=== PATIENT | male | born 1990 | race Caucasian/White ===

== ENCOUNTER 2020-12-29 09:43 | Outpatient (REF) | payer BC, SELFPAY ==
[2020-12-29 11:21] LABS: MANUAL DIFF FLAG NO
[2020-12-29 11:43] LABS: Basophils Percent Auto 0.3 % (0-2); Eosinophils Absolute Auto 0.3 X10*3/uL (0.0-0.4); Eosinophils Percent Auto 3.7 % (0-4); Hematocrit 40.7 % (42-52); Hemoglobin 13.2 g/dl (14.0-18.0); Imm Gran Abs Auto 0.03 X10*3/uL (0.00-0.03); Imm Gran Pct Auto 0.4 % (0.0-0.4); Lymphocytes Absolute Auto 1.6 X10*3/uL (1.2-4.9); Lymphocytes Percent Auto 20.5 % (20-40); Mean Corpuscular HGB Conc 32.4 g/dl (31.0-36.0); Mean Corpuscular Hemoglobin 26.8 pg (27.0-33.0); Mean Corpuscular Volume 82.7 fL (80-98); Mean Platelet Volume 10.1 fL (9.4-12.4); Monocytes Absolute Auto 0.8 X10*3/uL (0.1-1.2); Monocytes Percent Auto 9.7 % (2-11); Neutrophils Absolute Auto 5.2 X10*3/uL (2.0-8.3); Neutrophils Percent Auto 65.4 % (45-73); Platelet Count 287 X10*3/uL (160-400); Red Blood Count 4.92 X10*6/uL (4.60-5.80); Red Cell Distribution Width 12.2 % (11.0-16.0); White Blood Count 7.9 X10*3/uL (4.8-10.8)
[2020-12-29 11:57] LABS: Alanine Aminotransferase 27 U/L (0-40); Albumin Level 4.5 g/dL (3.5-5.0); Alkaline Phosphatase 141 U/L (39-117); Anion Gap 11 (12-20); Aspartate Amino Transferase 17 U/L (5-37); Bilirubin Total 0.8 mg/dL (0.0-1.0); Blood Urea Nitrogen 12 mg/dL (9-16); Calcium 9.3 mg/dL (8.4-10.2); Carbon Dioxide 28 mmol/L (22-29); Chloride 104 mmol/L (96-108); Cholesterol 211 mg/dL; Estimated Glomerular Filt Rate > 60; Glucose Fasting 86 mg/dL (60-99); HDL Cholesterol 55 mg/dL; LDL Cholesterol Calculated 141 mg/dl; Potassium 4.1 mmol/L (3.3-5.1); Sodium 139 mmol/L (135-145); Total Protein 7.3 g/dL (6.5-8.0); Triglycerides 78 mg/dL
== END 2020-12-29 09:44 | disposition home or self-care (01) ==
LOC: HO.HMGCLDS 09:43
PROVIDERS: PCP Nurse Practitioner Family; Visit Provider Nurse Practitioner Family
DX: Z00.00 Encounter for general adult medical examination without abnormal findings (principal); D64.9 Anemia, unspecified; R19.5 Other fecal abnormalities
CPT/HCPCS: 36415; 80053; 80061; 84443; 85025

== ENCOUNTER 2021-01-19 15:13 | Outpatient (REF) | payer BC, SELFPAY ==
[2021-01-20 08:08] LABS: FIT1 NEGATIVE (NEGATIVE)
[2021-01-20 08:09] LABS: FIT Int Ctl YES; FIT2 NEGATIVE (NEGATIVE)
== END 2021-01-19 15:14 | disposition home or self-care (01) ==
LOC: HO.LNP 15:13
PROVIDERS: Visit Provider Nurse Practitioner Family
DX: D64.9 Anemia, unspecified (principal)
CPT/HCPCS: 82274

== ENCOUNTER 2021-02-27 09:57 | Outpatient (REF) | payer BC, SELFPAY ==
[2021-02-27 11:44] LABS: MANUAL DIFF FLAG NO
[2021-02-27 11:51] LABS: Glucose Urine UA NEG (NEG); Leukocyte Esterase Urine NEG (NEG); Nitrite Urine NEG (NEG); Urine Blood NEG (NEG); Urine Ketones NEG (NEG); Urine Protein NEG (NEG-TRACE)
[2021-02-27 11:56] LABS: Appearance Urine CLEAR; Color Urine YELLOW
[2021-02-27 12:02] LABS: Basophils Percent Auto 0.1 % (0-2); Eosinophils Absolute Auto 0.2 X10*3/uL (0.0-0.4); Eosinophils Percent Auto 3.2 % (0-4); Hematocrit 41.7 % (42-52); Hemoglobin 13.3 g/dl (14.0-18.0); Imm Gran Abs Auto 0.04 X10*3/uL (0.00-0.03); Imm Gran Pct Auto 0.6 % (0.0-0.4); Lymphocytes Absolute Auto 1.7 X10*3/uL (1.2-4.9); Lymphocytes Percent Auto 24.3 % (20-40); Mean Corpuscular HGB Conc 31.9 g/dl (31.0-36.0); Mean Corpuscular Hemoglobin 26.7 pg (27.0-33.0); Mean Corpuscular Volume 83.6 fL (80-98); Mean Platelet Volume 10.2 fL (9.4-12.4); Monocytes Absolute Auto 0.7 X10*3/uL (0.1-1.2); Monocytes Percent Auto 10.6 % (2-11); Neutrophils Absolute Auto 4.1 X10*3/uL (2.0-8.3); Neutrophils Percent Auto 61.2 % (45-73); Platelet Count 300 X10*3/uL (160-400); Red Blood Count 4.99 X10*6/uL (4.60-5.80); Red Cell Distribution Width 12.4 % (11.0-16.0); White Blood Count 6.8 X10*3/uL (4.8-10.8)
[2021-02-27 12:14] LABS: RBC Urine 0 /HPF (0); WBC Urine 0-2 /HPF (0-4)
[2021-02-27 12:28] LABS: Ferritin 132 ng/mL (20-250)
[2021-02-27 12:49] LABS: Alanine Aminotransferase 17 U/L (0-40); Albumin Level 4.4 g/dL (3.5-5.0); Alkaline Phosphatase 149 U/L (39-117); Anion Gap 10 (12-20); Aspartate Amino Transferase 16 U/L (5-37); Bilirubin Total 0.8 mg/dL (0.0-1.0); Blood Urea Nitrogen 10 mg/dL (9-16); Calcium 9.8 mg/dL (8.4-10.2); Carbon Dioxide 27 mmol/L (22-29); Chloride 107 mmol/L (96-108); Estimated Glomerular Filt Rate > 60; Glucose Random 89 mg/dL (60-115); Iron 91 mcg/dL (45-160); Percent Iron Saturation 29 % (15-50); Potassium 4.4 mmol/L (3.3-5.1); Sodium 140 mmol/L (135-145); Total Iron Binding Capacity 314 mcg/dL (228-428); Total Protein 7.2 g/dL (6.5-8.0); Unsaturated Iron Binding 223 ug/dL
[2021-02-27 14:38] LABS: Folate 10.3 ng/mL (> or = 4.0); Vitamin B12 277 pg/mL (200-900)
== END 2021-02-27 09:58 | disposition home or self-care (01) ==
LOC: HO.HMGCLDS 09:57
PROVIDERS: PCP Nurse Practitioner Family; Visit Provider Nurse Practitioner Family
DX: D64.9 Anemia, unspecified (principal)
CPT/HCPCS: 36415; 80053; 81001; 82607; 82728; 82746; 83540; 85025; 87086

== ENCOUNTER 2021-03-09 13:07 | Outpatient (REF) | payer BC, SELFPAY ==
--- NOTE | ~2021-03-09 | XR_ITS ---
EXAMINATION: XR SHOULDER, RIGHT CLINICAL INFORMATION: Right shoulder dislocation. COMPARISON: None TECHNIQUE: AP external rotation, Grashey, scapular Y, and axillary views of the right shoulder. FINDINGS: The bones and soft tissues are normal. No fracture. Glenohumeral and acromioclavicular alignment is anatomic with normal joint space. No abnormal soft tissue calcifications. XR/XR shoulder RT min 2V IMPRESSION: Normal right shoulder.
== END 2021-03-09 13:08 | disposition home or self-care (01) ==
LOC: HO.XRAY 13:07
PROVIDERS: PCP Nurse Practitioner Family; Visit Provider Physician Assistant
DX: S43.004A Unspecified dislocation of right shoulder joint, initial encounter (principal)
CPT/HCPCS: 73030

== ENCOUNTER 2021-07-23 12:51 | Outpatient (REF) | payer BC, SELFPAY ==
[2021-07-23 13:07] LABS: MANUAL DIFF FLAG NO
[2021-07-23 13:29] LABS: Basophils Percent Auto 0.4 % (0-2); Eosinophils Absolute Auto 0.1 X10*3/uL (0.0-0.4); Eosinophils Percent Auto 1.9 % (0-4); Hematocrit 42.5 % (42.0-52.0); Hemoglobin 13.9 g/dl (14.0-18.0); Imm Gran Abs Auto 0.02 X10*3/uL (0.00-0.03); Imm Gran Pct Auto 0.3 % (0.0-0.4); Lymphocytes Percent Auto 28.5 % (20-40); Mean Corpuscular HGB Conc 32.7 g/dl (31.0-36.0); Mean Corpuscular Hemoglobin 26.8 pg (27.0-33.0); Monocytes Absolute Auto 0.8 X10*3/uL (0.1-1.2); Neutrophils Absolute Auto 3.95 x10*3/uL (2.0-8.3); Neutrophils Percent Auto 56.9 % (45-73); Platelet Count 291 X10*3/uL (160-400); Red Blood Count 5.18 X10*6/uL (4.60-5.80); Red Cell Distribution Width 12.9 % (11.0-16.0); White Blood Count 6.9 X10*3/uL (4.8-10.8)
[2021-07-23 13:36] LABS: Estimated Average Glucose 108 mg/dL; Hemoglobin A1C 131.7052 umol/L; Hemoglobin A1c % 5.4 %
[2021-07-23 14:01] LABS: Appearance Urine CLEAR; Color Urine YELLOW; Glucose Urine UA NEG (NEG); Leukocyte Esterase Urine NEG (NEG); Nitrite Urine NEG (NEG); Urine Blood NEG (NEG); Urine Ketones NEG (NEG); Urine Protein NEG (NEG-TRACE)
[2021-07-23 14:01] LABS: Alanine Aminotransferase 24 U/L (0-40); Albumin Level 4.6 g/dL (3.5-5.0); Alkaline Phosphatase 146 U/L (39-117); Anion Gap 12 (12-20); Aspartate Amino Transferase 19 U/L (5-37); Bilirubin Total 0.3 mg/dL (0.0-1.0); Blood Urea Nitrogen 7 mg/dL (9-16); Calcium 9.9 mg/dL (8.4-10.2); Carbon Dioxide 30 mmol/L (22-29); Chloride 105 mmol/L (96-108); Estimated Glomerular Filt Rate > 60; Gamma Glutamyl Transpeptidase 36 U/L (11-51); Glucose Random 92 mg/dL (60-115); Iron 73 mcg/dL (45-160); Percent Iron Saturation 23 % (15-50); Potassium 4.9 mmol/L (3.3-5.1); Sodium 142 mmol/L (135-145); Total Iron Binding Capacity 322 mcg/dL (228-428); Total Protein 7.4 g/dL (6.5-8.0); Unsaturated Iron Binding 249 ug/dL
[2021-07-23 14:21] LABS: Ferritin 136 ng/mL (20-250)
[2021-07-23 14:35] LABS: Vitamin B12 343 pg/mL (200-900)
== END 2021-07-23 12:52 | disposition home or self-care (01) ==
LOC: HO.LAB 12:51
PROVIDERS: PCP Nurse Practitioner Family; Visit Provider Nurse Practitioner Family
DX: D64.9 Anemia, unspecified (principal); R35.89 Other polyuria; R74.8 Abnormal levels of other serum enzymes
CPT/HCPCS: 36415; 80053; 81003; 82607; 82728; 82977; 83036; 83540; 85025

== ENCOUNTER 2021-08-10 21:53 | Emergency (ER) | payer BC, SELFPAY ==
[2021-08-10 22:33] VITALS: BP 110/66; PULSE 72; RESP 16; TEMP 36.3; O2SAT 99; BMI 23.8
--- NOTE | 2021-08-11 00:36 | ED_ITS ---
HPI - Wound/Laceration General Chief Complaint: Wound/Laceration Stated Complaint: left hand laceration Time Seen by Provider: 08/11/21 00:04 Source: patient and family ( Significant other) Mode of arrival: ambulatory Limitations: no limitations History of Present Illness HPI narrative: 30-year-old male came in for evaluation of left hand laceration. Left handed patient, was changing while in his car, left hand head to manage causing laceration at the base of 5th finger on the dorsum side, patient out of date for tetanus shot. No active bleeding at the moment. Related Data Home Medications Medication Instructions Recorded Confirmed ibuprofen 400 mg tablet 400 mg PO Q6H 02/27/21 02/27/21 Previous Rx's Medication Instructions Recorded montelukast 10 mg tablet 10 mg PO BEDTIME 90 Days #90 tab 04/09/21 (Singulair) amoxicillin 875 mg-potassium 1 tab PO Q12H #7 tab 08/11/21 clavulanate 125 mg tablet (Augmentin) Allergies Allergy/AdvReac Type Severity Reaction Status Date / Time No Known Allergies Allergy Verified 03/09/21 14:03 [No Known Allergies*] Review of Systems Review of Systems: All other systems are reviewed and are negative Constitutional: Reports as per HPI and Reports no additional constitutional complaints Eyes: Reports as per HPI and Reports no additional eye complaints Reports system reviewed and no additional complaints, except as documented Cardiovascular: Reports as per HPI and Reports no additional cardiovascular complaints Respiratory: Reports as per HPI and Reports no additional respiratory complaints Gastrointestinal: Reports as per HPI and Reports no additional gastrointestinal complaints Genitourinary: Reports no additional female genitourinary complaints Musculoskeletal: Reports no additional musculoskeletal complaints Skin/Breast: Reports system reviewed and no additional complaints, except as docu Psychiatric: Reports no additional psychiatric complaints Endocrine: Reports no additional endocrine complaints Hematologic/Lymphatic: Reports no additional hematologic/lymphatic complaints Allergic/Immunologic: Reports no additional allergic/immunologic complaints Reports system reviewed and no additional complaints, except as documented and Reports Abnormal speech present [facility] Past Medical History Medical History No known health problems Family History Family History Mother Asthma Social History Social History Alcohol intake: never Patient Tobacco Use Status: Never used Tobacco Advance Directives: No Advance Directives Information Provided: No Current occupational status: employed 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 Blood pressure normal. Heart rate normal. Respiration rate normal. Temperature normal. Oxygen saturation normal. Appearance: Alert. Oriented X3. No acute distress. Head: Normal external exam. Normocephalic. Atraumatic. No Beatty signs noted. No raccoon eyes noted Eyes: PERRLA. EOMI. Conjunctiva and sclera normal. Eyelids normal. ENT: TM's Normal. Pharynx normal. Uvula midline. Moist mucous membranes. No trismus noted. No drooling noted. No muffled voice noted. Neck: Normal inspection. Neck supple. FROM. No adenopathy. Thyroid Normal. No meningeal signs. No neck mass noted. CVS: Normal heart rate and rhythm. Heart sound normal. No murmurs noted. Pulses normal throughout. Respiratory: No respiratory distress. Painless inspiration. Breath sounds normal. No wheezes/rales/rhonchi noted. Chest nontender. No accessory muscle usage noted or decreased air movement noted. Abdomen: Soft and nontender. Bowel sounds normal in all 4 quadrants. No distention noted. No organomegaly noted. No visible injury noted. Back: No CVA tenderness. Full range of motion noted. Skin: Skin warm and dry. Normal skin color. Normal skin turgor. No rashes/lesions/lacerations noted. Extremities: Left hand exam: 2 cm laceration on the dorsum of left hand at the base of 5th finger, no active bleeding, no tendon injury. laceration edges are slightly red, hot with mild tenderness. Neuro: Oriented X 3. Cranial nerve exam: II-XII are grossly intact No motor deficit. No sensory deficit. Reflexes normal. Course Course Course Narrative: assessment and plan. Left hand laceration status post laceration repair with 4 suture please refer to procedure note. Start the patient on Augmentin early cellulitic change around the laceration concern of infection in the Dominant hand. Procedures Laceration Laceration 1: Site: hand Side (If applicable): left Size (cm): 3 Description: linear Depth: simple, single layer Local Anesthetic: lidocaine 1% Amount of anesthesia used (mL): 5 Pre-repair: wound explored Skin layer closed with: nylon Size (cm): 4-0 Number of sutures: 4 Discharge Plan Discharge Clinical Impression: Laceration Patient Disposition: Home, Self-Care Instructions: Laceration (ED) Prescriptions: New amoxicillin-pot clavulanate [Augmentin] 875-125 mg tablet 1 tab PO Q12H Qty: 7 RF: 0 No Action montelukast [Singulair] 10 mg tablet 10 mg PO BEDTIME 90 Days Qty: 90 RF: 0 ibuprofen 400 mg tablet 400 mg PO Q6H RF: 0 Referrals: Joseph Augustine, [employer]NA[employer] SAL[employer]ANT[employer] [Primary Care Provider] - 2 days
[2021-08-11] MEDS: Lidocaine HCl 1 % MPF 5 ML VIAL SUBCUT (00:53)
[2021-08-11] MEDS: Diphth,Pertus(ACell),Tet Adult 0.5 ML SYRINGE IM (00:54)
[2021-08-11] MEDS: Amoxicillin/Potassium Clav 875 MG TABLET PO (01:01)
== END 2021-08-11 01:08 | disposition home or self-care (01) ==
PROVIDERS: Emergency Provider Emergency Medicine; PCP Nurse Practitioner Family
DX: S61.412A Laceration without foreign body of left hand, initial encounter (principal); X58.XXXA Exposure to other specified factors, initial encounter; Y93.9 Activity, unspecified; Y92.9 Unspecified place or not applicable; Y99.9 Unspecified external cause status
CPT/HCPCS: 12002; 90471; 90715; 99283; 99284

== ENCOUNTER 2021-08-20 12:03 | Outpatient (REF) | payer BC, SELFPAY ==
[2021-08-20 14:21] LABS: Alanine Aminotransferase 38 U/L (0-40); Albumin Level 4.7 g/dL (3.5-5.0); Alkaline Phosphatase 162 U/L (39-117); Aspartate Amino Transferase 23 U/L (5-37); Bilirubin Direct 0.2 mg/dL (0.0-0.5); Bilirubin Total 0.5 mg/dL (0.0-1.0); Total Protein 7.6 g/dL (6.5-8.0)
== END 2021-08-20 12:04 | disposition home or self-care (01) ==
LOC: HO.HMGCLDS 12:03
PROVIDERS: Visit Provider Nurse Practitioner Family
DX: R74.8 Abnormal levels of other serum enzymes (principal)
CPT/HCPCS: 36415; 80076

== ENCOUNTER 2022-08-28 14:44 | Outpatient (REF) | payer OTHER, SELFPAY ==
[2022-08-28 17:01] LABS: Appearance Urine Clear; Color Urine Yellow; Glucose Urine UA Negative (Negative); Leukocyte Esterase Urine Negative (Negative); Nitrite Urine Negative (Negative); PH 5.5 (5.0-9.0); Urine Blood Negative (Negative); Urine Ketones Negative (Negative); Urine Protein Negative (Neg-Trace)
== END 2022-08-28 14:45 | disposition home or self-care (01) ==
LOC: HO.LNP 14:44
PROVIDERS: Visit Provider Internal Medicine
DX: R35.89 Other polyuria (principal); D64.9 Anemia, unspecified; R74.8 Abnormal levels of other serum enzymes
CPT/HCPCS: 81003

== ENCOUNTER 2022-09-25 10:59 | Outpatient (REF) | payer OTHER, SELFPAY ==
--- NOTE | ~2022-09-25 | US_ITS ---
EXAMINATION: US PELVIS LIMITED (BLADDER) CLINICAL INFORMATION: Urinary retention, polyuria. COMPARISON: Ultrasound abdomen 10/07/2018. TECHNIQUE: Real-time imaging of the bladder. FINDINGS: BLADDER: Well distended and unremarkable. Bilateral ureteral jets are demonstrated. Prevoid bladder volume is 159 mL. Postvoid bladder volume is 7.3 mL. Prostate volume 10.0 mL. US/US bladder IMPRESSION: Bladder is well distended and unremarkable. Prostate volume 10.0 mL.
[2022-09-25 14:10] LABS: MANUAL DIFF FLAG NO
[2022-09-25 14:16] LABS: Basophils Percent Auto 0.5 % (0-2); Eosinophils Absolute Auto 0.2 X10*3/uL (0.0-0.4); Hematocrit 44.6 % (42.0-52.0); Hemoglobin 14.1 g/dl (14.0-18.0); Imm Gran Abs Auto 0.01 X10*3/uL (0.00-0.03); Imm Gran Pct Auto 0.2 % (0.0-0.4); Lymphocytes Absolute Auto 1.9 X10*3/uL (1.2-4.9); Lymphocytes Percent Auto 46.2 % (20-40); Mean Corpuscular HGB Conc 31.6 g/dl (31.0-36.0); Mean Corpuscular Hemoglobin 26.2 pg (27.0-33.0); Mean Corpuscular Volume 82.9 fL (80.0-98.0); Mean Platelet Volume 10.3 fL (9.4-12.4); Monocytes Absolute Auto 0.6 X10*3/uL (0.1-1.2); Monocytes Percent Auto 14.3 % (2-11); Neutrophils Absolute Auto 1.4 x10*3/uL (2.0-8.3); Neutrophils Percent Auto 33.8 % (45-73); Platelet Count 315 X10*3/uL (160-400); Red Blood Count 5.38 X10*6/uL (4.60-5.80); White Blood Count 4.2 X10*3/uL (4.8-10.8)
[2022-09-25 14:30] LABS: Alanine Aminotransferase 40 U/L (0-40); Albumin Level 4.5 g/dL (3.5-5.0); Alkaline Phosphatase 124 U/L (39-117); Anion Gap 11 (12-20); Aspartate Amino Transferase 46 U/L (5-37); Bilirubin Total 0.4 mg/dL (0.0-1.0); Blood Urea Nitrogen 11 mg/dL (9-16); Calcium 9.7 mg/dL (8.4-10.2); Carbon Dioxide 30 mmol/L (22-29); Chloride 102 mmol/L (96-108); Cholesterol 151 mg/dL; Estimated Glomerular Filt Rate > 60; Gamma Glutamyl Transpeptidase 38 U/L (11-51); Glucose Random 86 mg/dL (60-115); HDL Cholesterol 44 mg/dL; LDL Cholesterol Calculated 93 mg/dl; Sodium 138 mmol/L (135-145); Total Protein 7.3 g/dL (6.5-8.0); Triglycerides 70 mg/dL
[2022-09-27 09:17] LABS: HBS Num1 18.98 mIU/mL (0-7.99); HBc Num1 0.07 S/CO (0.00-0.79); HBsAGNum1 0.37 S/CO (0.00-0.99); Hepatitis A Antibody IgM 0.18 Index (0-0.79); Hepatitis B Core Antibody Nonreactive (Nonreactive); Hepatitis B Surface Antigen Negative (Negative); ~HepC Num1 0.07 S/CO (0.00-0.79); ~Hepatitis A Antibody IgM Nonreactive (Nonreactive); ~Hepatitis B Surface Antibody REACTIVE (Nonreactive); ~Hepatitis C Antibody Nonreactive (Nonreactive)
== END 2022-09-25 11:00 | disposition home or self-care (01) ==
LOC: HO.HMGCX 10:59
PROVIDERS: PCP Internal Medicine; Visit Provider Internal Medicine
DX: Z00.00 Encounter for general adult medical examination without abnormal findings (principal); R74.8 Abnormal levels of other serum enzymes; D64.9 Anemia, unspecified; R35.89 Other polyuria
CPT/HCPCS: 36415; 76857; 80053; 80061; 82977; 85025; 86704; 86706; 86709; 86803; 87340

== ENCOUNTER → 2022-11-28 13:59 | Outpatient (BNVA) | payer OTHER, SELFPAY | PROVIDERS: PCP Internal Medicine; Visit Provider Urology | DX: R35.0 Frequency of micturition (principal); R39.89 Other symptoms and signs involving the genitourinary system; R39.15 Urgency of urination | CPT/HCPCS: 51798 ==

== ENCOUNTER 2023-02-13 14:37 | Outpatient (REF) | payer OTHER, SELFPAY ==
--- NOTE | ~2023-02-13 | XR_ITS ---
EXAMINATION: XR SHOULDER, RIGHT CLINICAL INFORMATION: Reason for Exam M25.519 - Pain in unspecified shoulder COMPARISON: None TECHNIQUE: Three views of the shoulder. FINDINGS: No acute fracture or dislocation. Joint spaces are maintained without significant degenerative change. Soft tissues are unremarkable. XR/XR shoulder RT min 2V IMPRESSION: * No acute osseous abnormality.
== END 2023-02-13 14:38 | disposition home or self-care (01) ==
LOC: HO.HOSX 14:37
PROVIDERS: PCP Internal Medicine; Visit Provider Physician Assistant
DX: S43.004A Unspecified dislocation of right shoulder joint, initial encounter (principal)
CPT/HCPCS: 73030

== ENCOUNTER 2023-04-14 12:45 | Outpatient (REF) | payer OTHER, SELFPAY ==
--- NOTE | ~2023-04-14 | FL_ITS ---
EXAMINATION: XR ARTHROGRAM SHOULDER, RIGHT CLINICAL INFORMATION: Dislocation right shoulder. Pre-MRI arthrogram COMPARISON: Previous x-ray 02/13/2023 TECHNIQUE: Procedure and risks and benefits including bleeding and infection were discussed with the patient and informed consent was obtained. The right shoulder was prepped and draped in the usual sterile fashion. The skin and soft tissues were anesthetized with 1% lidocaine plain. Using ultrasound guidance and a 22-gauge spinal needle, access to the right shoulder joint was obtained. 1 mL Omnipaque 300 contrast was injected fluoroscopically confirming adequate placement in the joint space. Subsequently, 6 mL of dilute gadolinium mixed with saline was injected pre-MRI. FINDINGS: Image demonstrate contrast opacification of the right shoulder joint. FLUOROSCOPY TIME: Fluoroscopy time 0.2 minutes DOSE AREA PRODUCT: 0.3 myers per centimeter squared. Total dose 2 mgy. 1 saved fluoroscopic image. FL/FL arthrogram shoulder RT IMPRESSION: Pre-MRI right shoulder arthrogram.
--- NOTE | ~2023-04-14 | MR_ITS ---
EXAMINATION: MR SHOULDER WITH CONTRAST, RIGHT CLINICAL INFORMATION: Right shoulder recurrent dislocations. COMPARISON: Right shoulder fluoroscopic arthrography done earlier the same day and radiographs dated 02/13/2023. TECHNIQUE: MRI of the shoulder was performed following the intra-articular administration of a dilute gadolinium-containing solution (arthrogram) on a high-field scanner. FINDINGS: ROTATOR CUFF: Mild distal supraspinatus tendinosis. No measurable rotator cuff tendon tear. No muscle atrophy or fatty infiltration. BICEPS: Intact. CORACOACROMIAL ARCH: The undersurface of the acromion is minimally curved with no subacromial spur. The acromioclavicular joint is normal. LABRUM/CAPSULE: Contrast extending through the undersurface of the anterior inferior labrum with attenuation and irregularity of the anterior labrum, consistent with mildly displaced tearing. No underlying glenoid marrow edema or glenoid fracture. 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 GLENOHUMERAL JOINT/MARROW: Humeral head currently well seated within the glenoid. Intact articular cartilage. Cortical depression at the posterosuperior humeral head measuring up to 2.4 cm in ML dimension without significant marrow edema, consistent with a chronic Hill-Sachs deformity. MR/MR shoulder RT w con IMPRESSION: 1. Chronic Hill-Sachs deformity at the posterosuperior humeral head measuring up to 2.4 cm in ML dimension without significant marrow edema. 2. 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 No underlying glenoid fracture or marrow edema. 3. Mild distal supraspinatus tendinosis without a measurable rotator cuff tendon tear.
== END 2023-04-14 12:46 | disposition home or self-care (01) ==
LOC: HO.XRAY 12:45
PROVIDERS: PCP Internal Medicine; Visit Provider Physician Assistant
DX: S43.004A Unspecified dislocation of right shoulder joint, initial encounter (principal)
CPT/HCPCS: 23350; 73040; 73222; A9585

== ENCOUNTER → 2023-04-14 12:46 | Outpatient (BNV) | payer OTHER, SELFPAY | PROVIDERS: PCP Internal Medicine; Visit Provider Radiology Diagnostic Radiology | DX: S43.004A Unspecified dislocation of right shoulder joint, initial encounter (principal) | CPT/HCPCS: 73040 ==

== ENCOUNTER 2023-05-02 09:21 | Outpatient (AMB) | payer OTHER, SELFPAY ==
--- NOTE | 2023-05-02 09:31 | A.OFFVIS_ITS ---
Intake Vital Signs 05/02/23 09:32 Height 5 ft 7 in Weight 147 lb BMI 23.0 Intake Visit Reasons: OV- MRI Review Rt Shoulder Intake Note: Shivam is a 32 year old left hand dominant male who presents today for an MRI review of the right shoulder. Patient reports that his shoulder is feeling the same with no changes Allergies No Known Allergies [No Known Allergies*] Allergy (Verified 05/02/23 09:33) HPI OV- MRI Review Rt Shoulder HPI Details Shivam is a 32 year old left hand dominant man who presents for an MRI review of his right shoulder. He says he continues to have pain with activity, unchanged from prior. His pain began after a shoulder dislocation on 02/18/21, when putting a shirt on. He has had multiple dislocations since this date, 10+ as of 12/2022. He says this most recent occurred when he was at the [employer]. He says while he has had his shoulder reduced at a hospital several times, for this most recent he did this himself. He enies ever having shoulder surgery. He denies modifying any normal daily activities and stays active by lifting weights at home or exercising almost daily. 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 Cognitive needs: No Hearing needs: No Vision needs: Yes Review of Systems Const All systems reviewed & are unremarkable except as noted in HPI and below Physical Exam Vital Signs: BMI result Body Mass Index 23.0 Const General: no acute distress, alert and awake Orientation/consciousness: patient oriented x3 HEENT Head: Yes normocephalic and Yes atraumatic Eyes EOM: EOMs intact bilaterally Resp Effort & Inspection: normal respiratory effort and able to speak in complete sentences Cardio Jugular venous distension: no JVD Skin General skin exam: turgor normal Rashes: no rashes Neuro General: patient oriented x3 Extrem Other: Right Shoulder: 2+ sulcus neg apprehension elbow extend 10 deg past neutral Psych Appearance: grossly normal Affect: normal affect Attitude: cooperative Results Reviewed Results Reviewed: I personally reviewed relevant MR images 1. Chronic Hill-Sachs deformity at the posterosuperior humeral head measuring up to 2.4 cm in ML dimension without significant marrow edema. 2. 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 No underlying glenoid fracture or marrow edema. 3. Mild distal supraspinatus tendinosis without a measurable rotator cuff tendon tear. Assessment & Plan Assessment & Plan (1) Dislocation of right shoulder joint: Code(s): S43.004A - Unspecified dislocation of right shoulder joint, initial encounter Plan: This is a 32 year old man with right shoulder instability with 10+ dislocations since 02/18/21. He hasn't dislocated in last year but has had to go to ER to have [place]oulder reduced previously. He has no pain with daily activity, but does not feel limited in his activity. 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 He is active with weight-lifting. I discussed his diagnosis and treatment options. I recommend surgery, and he would like to proceed. 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 He will follow up sometime next November to discuss treatment. Coding Level of Care Code Est Pt Level 4 (79592) Diagnoses Dislocation of right shoulder joint S43.004A
[2023-05-02 09:32] VITALS: BMI 23.0
== END 2023-05-02 09:58 | disposition home or self-care (01) ==
PROVIDERS: PCP Internal Medicine; Visit Provider Orthopaedic Surgery
DX: S43.004A Unspecified dislocation of right shoulder joint, initial encounter (principal); S42.291A Other displaced fracture of upper end of right humerus, initial encounter for closed fracture
CPT/HCPCS: 99214

== ENCOUNTER → 2023-05-02 09:21 | Outpatient (BNVA) | payer OTHER, SELFPAY | PROVIDERS: PCP Internal Medicine; Visit Provider Orthopaedic Surgery ==

== ENCOUNTER 2023-11-21 09:27 | Outpatient (AMB) | payer SELFPAY ==
[2023-11-21 09:29] VITALS: BMI 23.0
--- NOTE | 2023-11-21 09:29 | MHC.OFFVIS ---
Intake Vital Signs 11/21/23 09:29 Height 5 ft 7 in Weight 147 lb BMI 23.0 Intake Visit Reasons: ov-Dislocation of right shoulder joint Intake Note: Shivam is a 32 year old left hand dominant male who presents today for a follow up of his right shoulder. Patient has extensive history of 10+ dislocations since 02/18/21. 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 He returns today to further discuss surgery. Allergies No Known Allergies [No Known Allergies*] Allergy (Verified 11/21/23 09:31) HPI ov-Dislocation of right shoulder joint HPI Details Shivam is a 33 year old left hand dominant man who returns to discuss treatment for his chronic right shoulder dislocations. He will be completing his [employer] academy training this month, and is here to discuss surgery. He has had one dislocation since I last saw him. Overall he has had multiple dislocations. He says he is doing well overall. He stays active by lifting weights at home or exercising almost daily. 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 His last dislocation was while getting dressed. He states is dislocated inferiorly this time. 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 Resp Other: No audible wheezing Effort & Inspection: normal respiratory effort and able to speak in complete sentences Cardio Other: Radial pulse palpable with no rythmic abnormalities Jugular venous distension: no JVD Back/Spine/Pelvis Cervical Spine: normal cervical lordosis Skin General skin exam: turgor normal Rashes: no rashes Neuro General: patient oriented x3 Extrem Other: + apprehension /+ relocation 1+ sulcus at neutral and 40 deg ER Psych Appearance: grossly normal Mental Status: mental status grossly normal Speech and movement: Normal speech and movement present Affect: normal affect Attitude: cooperative Results Reviewed Results Reviewed: I personally reviewed the MR images. 1. Chronic Hill-Sachs deformity at the posterosuperior humeral head measuring up to 2.4 cm in ML dimension without significant marrow edema. 2. 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 No underlying glenoid fracture or marrow edema. 3. Mild distal supraspinatus tendinosis without a measurable rotator cuff tendon tear Assessment & Plan Assessment & Plan (1) Dislocation of right shoulder joint: Code(s): S43.004A - Unspecified dislocation of right shoulder joint, initial encounter Plan: This is a 33 yo M with multiple shoulder dislocations. He has failed PT and now dislocates with minimal provocation. I recommend right shoulder caspular plication. I discussed this with him and reveiwed the surgery and I discussed the risks benefits and alternatives including but not limited to the risk of pain, infection, stiffness, need for further surgery, recurrnet dislocation ,nerve injury as well as potential medical complications such as blood clots, pulmonary embolism and cardiac complications. He expressed understanding and we will proceed forward accordingly. Plan Prepared for Ja Guillory MD by Nick Cancino, registered medical assistant, on 11/21/23 at 9:30 AM, EST. Coding Level of Care Code Est Pt Level 4 (94725) Diagnoses Dislocation of right shoulder joint S43.004A
== END 2023-11-21 10:01 | disposition home or self-care (01) ==
PROVIDERS: PCP Internal Medicine; Visit Provider Orthopaedic Surgery
DX: S43.004A Unspecified dislocation of right shoulder joint, initial encounter (principal)
CPT/HCPCS: 99214

== ENCOUNTER → 2023-11-21 09:27 | Outpatient (BNVA) | payer OTHER, SELFPAY | PROVIDERS: PCP Internal Medicine; Visit Provider Orthopaedic Surgery | DX: M24.411 Recurrent dislocation, right shoulder (principal) | CPT/HCPCS: 99212 ==

== ENCOUNTER 2023-12-08 13:43 | Outpatient (AMB) | payer OTHER, SELFPAY ==
--- NOTE | 2023-12-08 14:02 | MHC.OFFVIS ---
Intake Intake Visit Reasons: Follow up polyuria Intake Note: Patient presents today for a follow-up on polyuria Meds- None Allergies to Antibiotic- No Known Allergies Blood Thinner- None Post Void Residual: 0ml Contract Negotiator Required: No Accompanied by: Self / Same As Patient Allergies No Known Allergies [No Known Allergies*] Allergy (Verified 12/23/23 08:10) HPI HPI Comments History of Present Illness Details Shivam is a 33year old male here for evaluation of urinary frequency, he was initially evaluated on 11/28/2022. Cystoscopy hydrodistention was discussed at that time that the patient states he had to cancel procedure but is now ready to proceed with further evaluation for his bladder symptoms. He states that while awake she has urgency and frequency about 20 times And is up 5-7 times when sleeping. He denies gross hematuria If he can not get to the bathroom he feels pressure and pain in the bladder area Prostate cancer family history both grandfathers maternal and paternal Denies problems with erections denies pain with ejaculation. Reviewed bladder ultrasound dated 09/25/2022, urine measured 159 mL postvoid residual 7.3 mL, prostate 10 mL I have discussed his general fluid intake; he does have about 16 oz of an energy drink but generally does not appear to be having excess fluid intake. He states that he has tried stopping caffeine intake but it has not made a difference in his urinary symptoms. 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 Cognitive needs: No Hearing needs: No Vision needs: Yes Review of Systems Const All systems reviewed & are unremarkable except as noted in HPI and below Reports no additional complaints Eyes Reports no additional complaints ENT Reports no additional complaints Card Reports no additional complaints Resp Reports no additional complaints GI Reports no additional complaints Reports as per HPI Musc Reports no additional complaints Skin/Breast Reports system reviewed and no additional complaints, except as documented Neuro Reports no additional complaints Psych Reports no additional complaints Endo Reports no additional complaints Elver/Lymph Reports no additional complaints Aller/Immun Reports no additional complaints Office Procedures Post Void Residual Post Residual Void Post Void Residual (PVR): 0 61604-Vicf Void Residual by ultrasound Results AMB Urinalysis, Automated UA Leukoctes 0 Tanika/uL Last Edit by [facility] on 12/08/23 14:17 UA Nitrite Negative Last Edit by [facility], [facility] on 12/08/23 14:17 UA Urobilinogen 0.2 mg/dL Last Edit by [facility], [facility] on 12/08/23 14:17 UA Protein 15 mg/dL Last Edit by [facility], [facility] on 12/08/23 14:17 UA pH 6.0 Last Edit by [facility], [facility] on 12/08/23 14:17 UA Blood 0 Jsese/uL Last Edit by [facility], [facility] on 12/08/23 14:17 UA Specific [place] 1.025 Last Edit by [facility], [facility] on 12/08/23 14:17 UA Ketone Negative Last Edit by [facility], [facility] on 12/08/23 14:17 UA Bilirubin 0 mg/dL Last Edit by [facility], [facility] on 12/08/23 14:17 UA Glucose 0 mg/dL Last Edit by [facility] on 12/08/23 14:17 Results Reviewed Results Reviewed: Laboratory Last Values Urine pH (Auto) 6.0 12/08/23 14:15 Specific [place] (Auto) 1.025 12/08/23 14:15 Urine Protein (Auto) 15 mg/dL 12/08/23 14:15 Glucose (UA)(Auto) 0 mg/dL 12/08/23 14:15 Urine Ketones (Auto) Negative 12/08/23 14:15 Urine Blood (Auto) 0 Jesse/uL 12/08/23 14:15 Urine Nitrite (Auto) Negative 12/08/23 14:15 Urine Bilirubin (Auto) 0 mg/dL 12/08/23 14:15 Urine Urobilinogen (Auto) 0.2 mg/dL 12/08/23 14:15 Leukocyte Esterase (Auto) 0 Tainka/uL 12/08/23 14:15 Assessment & Plan Assessment & Plan (1) Urinary frequency: Code(s): R35.0 - Frequency of micturition (2) Sensation of pressure in bladder area: Code(s): R39.89 - Other symptoms and signs involving the genitourinary system (3) Urinary urgency: Code(s): R39.15 - Urgency of urination Plan Renal ultrasound Cystoscopy hydrodistention. Discussed risks to include but not limited to, blood in the urine, burning with urination, urgency. Orders: Orders AMB Post Void Residual by ultrasound 12/08/23 R33.9 - Retention of urine, unspecified AMB Urinalysis Automated 12/08/23 R33.9 - Retention of urine, unspecified Patient Instructions: The patient had an opportunity to ask questions regarding treatment plan. All questions were answered. No major barriers to understanding were identified. The patient expressed understanding and agreement with the above treatment plan. The patient is aware they should contact our office by phone for worsening of their current condition or the appearance of new symptoms. Compliance is encouraged with any medications and followup testing that is ordered. It is a privilege to be allowed the opportunity to participate in the urologic care of your patient. If you have any questions or concerns regarding treatment for the above conditions please do not hesitate to contact me. The office telephone contact is [phone]. This note is constructed in part using voice recognition software. While every effort has been made to ensure accuracy recruitment manager errors may have been included. Yours sincerely, Yrn Driver MD Coding Level of Care Code Est Pt Level 4 (98256) Diagnoses Urinary frequency R35.0 Sensation of pressure in bladder area R39.89 Urinary urgency R39.15 CPT Codes Post Residual Void - PVR CPT Code: 48139-Cntr Void Residual by ultrasound ([id number])
== END 2023-12-08 14:56 | disposition home or self-care (01) ==
PROVIDERS: PCP Internal Medicine; Visit Provider Urology
DX: R35.0 Frequency of micturition (principal); R39.89 Other symptoms and signs involving the genitourinary system; R39.15 Urgency of urination
CPT/HCPCS: 99214

== ENCOUNTER → 2023-12-08 13:43 | Outpatient (BNVA) | payer SELFPAY | PROVIDERS: PCP Internal Medicine; Visit Provider Urology | DX: R35.0 Frequency of micturition (principal); R39.89 Other symptoms and signs involving the genitourinary system; R39.15 Urgency of urination; R33.9 Retention of urine, unspecified | CPT/HCPCS: 51798; 81003; 99212 ==

== ENCOUNTER 2023-12-17 07:05 | Day surgery (SDC) | payer OTHER, SELFPAY ==
[2023-12-15 09:53] VITALS: BMI 23.0
[2023-12-17] VITALS (11 sets, daily range): BP systolic 98–131; BP diastolic 55–73; PULSE 56–71; RESP 15–16; TEMP 36.6–36.8; O2SAT 96–100; BMI 21.9
[2023-12-17] MEDS: Lactated Ringers 1,000 ML 50 ML IVCONT (08:44)
--- NOTE | 2023-12-17 08:50 | P.CONAN_ITS ---
HPI - Anesthesia Eval Consult details Narrative: for right shoulderrepair PMFSH Active Problems Active Problems: All Active Problems (Updated 12/15/23 @ 09:52 by Tran Cardenas RN) Urinary urgency (Acute) Sensation of pressure in bladder area (Acute) Urinary frequency (Acute) Rectal bleeding (Acute) Polyuria (Acute) Elevated alkaline phosphatase level (Acute) Dislocation of right shoulder joint (Acute) Anemia (Acute) Physical exam (Acute) Past Medical History Medical History Dislocation of right shoulder joint Anemia Urinary urgency Family History Family History Mother Asthma Family history of problems with anesthesia: No Surgical History Surgical History No pertinent past surgical history History of Problems with Anesthesia: No Social History Social History Housing: House Alcohol intake: never Patient Tobacco Use Status: Never used Tobacco Use of substances other than those prescribed or required for medical reasons: No Are you DNR?: No Advance Directives: No Advance Directives Information Provided: Yes Current occupational status: employed 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 Cognitive needs: No Hearing needs: No Vision needs: Yes Meds Allergies Allergy/AdvReac Type Severity Reaction Status Date / Time No Known Allergies Allergy Verified 12/17/23 08:11 [No Known Allergies*] Active Medications: Current Medications Lactated Ringer's (Lr) 1,000 mls @ 50 mls/hr IVCONT .Q20H HUAN Exam Height,Weight and Vital Signs: Height 5 ft 7 in Weight 63.503 kg Last Vital Signs Temp 98.2 F 12/17/23 08:31 Pulse 64 12/17/23 08:31 Resp 15 12/17/23 08:31 BP 100/63 12/17/23 08:31 Pulse Ox 99 12/17/23 08:31 O2 Del Method Room Air 12/17/23 08:31 Airway Mallampati Class: II TM Dist: >3cm Neck ROM: Full Heart: rrr Lungs: cta Assessment and Plan Assessment Anesthesia Assessment: Anesthesia Plan Discussed and Chart Reviewed Final Anesthetic Review Family History of Problems with Anesthesia: No History of Problems with Anesthesia: No NPO: Yes ASA Class: II Final Preanesthetic Review: No Changes in Pt Med Stat, Meds/Allgs Chart Reviewed, Consent Obtained/Reviewed and Anes Risks/Benef Reviewed Patient Risk: Low Procedure Risk: Intermediate Anesthetic Plan Anesthetic Plan: GA and Regional Block Disposition: Standard PACU
--- NOTE | 2023-12-17 10:00 | MHC.SHP ---
Pre-Procedural Eval Section A - 24 Hr Update-Section A only Date of Service: 12/17/23 The patient is an INPATIENT: No Changes since office visit: No Cold of Flu in the past 2 weeks, No New Medical Problems, No Changes in Medication and No Patient answered all questions The patient has been examined within 24 hours of the surgical procedure. The History & Physical has been completed within 30 days and I have reviewed it.: Yes Section B - Complete if H&P > 30 days Chief Complaint: Other instability, right shoulder,FX of upper end Allergies: Allergies Allergy/AdvReac Type Severity Reaction Status Date / Time No Known Allergies Allergy Verified 12/17/23 08:11 [No Known Allergies*] Plan I have reviewed the history and physical and performed a pertinent physical examination on my patient. No changes have occurred unless specified. Time Spent With Patient Time: Total time managing care of this patient today ____ minutes.
--- NOTE | 2023-12-17 11:41 | P.BOP_ITS ---
Brief Operative Note Date of Service: 12/17/23 Pre-op diagnosis: Right shoulder instability Post-op diagnosis: same Procedure: Right shoulder capsular plication Implants: Gaona and Nephew micro-raptor x 2 Surgeon: Ja Guillory MD Anesthesia: GETA and regional Was an Tufting Machine Operator used for this Procedure?: Yes Tufting Machine Operator: Tammy Enriquez Estimated blood loss (mL): 10 IV fluids (mL): 1,000 Pathology: none sent Condition: stable Disposition: PACU
[2023-12-17] MEDS: ondansetron HCL 4 MG/2 ML VIAL IVPUSH (12:13)
[2023-12-17] MEDS: Haloperidol Lactate 5 MG/ML VIAL 1 MG IVPUSH (12:41)
--- NOTE | 2023-12-21 19:01 | P.OP_ITS ---
Operative Note Operative Note Date of Service: 12/17/23 Narrative: Date of Service: 12/17/23 Pre-op diagnosis: Right shoulder instability Post-op diagnosis: same Procedure: Right shoulder capsular plication Implants: Gaona and Nephew micro-raptor x 2 Surgeon: Ja Guillory MD Anesthesia: GETA and regional Was an Mandate Retail Service Merchandiser used for this Procedure?: Yes Mandate Retail Service Merchandiser: Tammy Enriquez Estimated blood loss (mL): 10 IV fluids (mL): 1,000 Pathology: none sent Condition: stable Disposition: PACU Procedure in detail: Patient was brought to the operating room and placed the the beach chair position. All bony prominences were well padded and the limb was prepped and draped in standard sterile fashion. A time out was called to identify proper site, proper procedure and proper surgeon. IV antibiotics per weight were administered. I began by making a posterolateral stab incision with a 15 blade. A blunt trochar was placed into the glenohumeral joint and I insufflated the joint with saline and a 30 degree arthroscope was placed. I established an outside- in anterior portal just distal to the biceps tendon. I then began my inspection of the glenohumeral joint. There was min G 1 cartilage changes of the inferior glenoid. The subscapularis was intact and there was no under-surface RTC tearing. There was a +drive through sign. The anterior labrum was not present and the capsule was patulous. I used a nitinol passer to grab the inferior gh ligament at the 6 o:clock position and then passed a suture tape through this. I repeated this process slightly higher and into the capsule. I then debrided the anterior glenoid and placed a 2.7 micro-raptor at the 5 o:clock position and brought these four limbs into the cuff. The brought the inferior GH ligament and capsule proximal and I was pleased with the position. I then repeated this process at the 4 o:clock position and used a second 2.7 mm anchor at ~3 o:clock. I was satisfied with the plication. There was no longer a + drive though. I then removed all instrumentation and took my final pictures. Portals were closed with nylon. Patient was placed in an abduction sling, extubated and brought to the recovery room in stable condition. There were no known complications.
== END 2023-12-17 14:37 | disposition home or self-care (01) ==
PROVIDERS: PCP Internal Medicine; Visit Provider Orthopaedic Surgery
PROC: (CPT 29805; principal; 2023-12-17 10:30)
DX: M25.311 Other instability, right shoulder (principal); M24.411 Recurrent dislocation, right shoulder; D64.9 Anemia, unspecified
CPT/HCPCS: 29806; J0131; J0171; J0665; J0690; J1100; J1630; J2250; J2405; J2704; J3010

== ENCOUNTER → 2023-12-17 07:05 | Outpatient (BNV) | payer OTHER, SELFPAY | PROVIDERS: PCP Internal Medicine; Visit Provider Orthopaedic Surgery | DX: M25.311 Other instability, right shoulder (principal) | CPT/HCPCS: 29806 ==

== ENCOUNTER 2023-12-23 08:05 | Outpatient (AMB) | payer OTHER, SELFPAY ==
--- NOTE | 2023-12-23 08:06 | MHC.OFFVIS ---
Intake Vital Signs 12/23/23 08:09 Height 5 ft 6 in Weight 140 lb BMI 22.6 Handedness Left Intake Visit Reasons: PO RT Shoulder caps plication 12/17/23 NE Intake Note: Shivam is a 33 year old left hand dominant male who presents today for a post op appointment s/p right shoulder cap plication 12/17/23 NE. Patient reports having some mild pain around his shoulder. Allergies No Known Allergies [No Known Allergies*] Allergy (Verified 12/23/23 08:10) HPI PO RT Shoulder caps plication 12/17/23 NE HPI Details 33-year-old left hand dominant male who presents in the office today 6 days status post a right shoulder capsular plication, which was performed on by Dr. Guillory. The patient reports having some mild pain around the right shoulder. 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 Sutures intact. No surrounding erythema or drainage. No signs of infection. Forward flexion and abduction to 45 degrees. NVI. Assessment & Plan Assessment & Plan (1) S/P arthroscopy of right shoulder: Onset Date: ~12/17/23 Comment: Right shoulder capsular plication; Dr. Ja Guillory Code(s): Z98.890 - Other specified postprocedural states Plan Mr. Betsy Marcos is a 33-year-old left hand dominant male who presents in the office today 6 days status post a right shoulder capsular plication, which was performed on by Dr. Guillory. The patient reports having some mild pain around the right shoulder. Sutures were removed and steri-stripes were applied. He will remain in the sling until 6 weeks post-op. Our office will be calling the physical therapy office in an attempt to get the patient scheduled as soon as possible. Follow up will be in [address] Guillory, or sooner if needed. Current pain regiment: --Oxycodone-acetaminophen 5-325 mg PO Q4-6H PRN 42 tabs for 7 days last prescribed 12/17/23 Orders: Orders PT Evaluation and Treatment Today Z98.890 - Other specified postprocedural states Patient Instructions: Scribed by Francy Tucker medical affairs director, for Tammy Enriquez PA-C on 12/23/2023 at 8:09 am, EST. Coding Level of Care Code Global (46775) Diagnoses S/P arthroscopy of right shoulder Z98.890
[2023-12-23 08:09] VITALS: BMI 22.6
== END 2023-12-23 08:45 | disposition home or self-care (01) ==
PROVIDERS: PCP Internal Medicine; Visit Provider Physician Assistant
DX: Z98.890 Other specified postprocedural states (principal)
CPT/HCPCS: 99024

== ENCOUNTER → 2023-12-23 08:05 | Outpatient (BNVA) | payer OTHER, SELFPAY | PROVIDERS: PCP Internal Medicine; Visit Provider Physician Assistant | DX: Z47.89 Encounter for other orthopedic aftercare (principal); Z98.890 Other specified postprocedural states | CPT/HCPCS: 99212 ==

== ENCOUNTER 2024-01-12 11:17 | Outpatient (REF) | payer OTHER, SELFPAY ==
--- NOTE | ~2024-01-12 | US_ITS ---
EXAMINATION: US RETROPERITONEAL LIMITED (RENAL ONLY) CLINICAL INFORMATION: Other symptoms and signs involving the genitourinary system. COMPARISON: Ultrasound pelvis limited (bladder) 09/25/2022. Ultrasound abdomen complete 10/07/2018. TECHNIQUE: Real-time imaging of the kidneys. FINDINGS: RIGHT KIDNEY: 9.7 x 4.4 x 4.0 cm (SAG x AP x TRV). The kidney is normal in size, contour, and echogenicity. Renal cortical thickness is normal. No calculi or focal parenchymal lesions. No hydronephrosis. LEFT KIDNEY: 10.1 x 5.0 x 5.0 cm (SAG x AP x TRV). The kidney is normal in size, contour, and echogenicity. Renal cortical thickness is normal. No calculi or focal parenchymal lesions. No hydronephrosis. US/US renal BI IMPRESSION: Unremarkable examination.
== END 2024-01-12 11:18 | disposition home or self-care (01) ==
LOC: HO.US 11:17
PROVIDERS: PCP Internal Medicine; Visit Provider Urology
DX: R39.89 Other symptoms and signs involving the genitourinary system (principal); R35.0 Frequency of micturition
CPT/HCPCS: 76775

== ENCOUNTER 2024-01-22 09:22 | Outpatient (AMB) | payer OTHER, SELFPAY ==
[2024-01-22 09:41] VITALS: BMI 22.6
--- NOTE | 2024-01-22 09:41 | MHC.OFFVIS ---
Vital Signs 01/22/24 09:41 Height 5 ft 6 in Weight 140 lb BMI 22.6 Intake Visit Reasons: PO RT Shoulder caps plication 12/17/23 NE Intake Note: Shivam is a 33 year old left hand dominant male who presents today for a post op appointment s/p right shoulder cap plication 12/17/23 NE. Patient reports that he is doingk well, with mild pain. He feels cracking but was told that this is normal by PT. Allergies No Known Allergies [No Known Allergies*] Allergy (Verified 01/22/24 09:41) HPI HPI PO RT Shoulder caps plication 12/17/23 NE: Details: Shivam is a 33 year old left hand dominant male who presents today for a post op appointment s/p right shoulder cap plication 12/17/23 NE. Patient reports that he is doing well, with mild pain. He feels cracking but was told that this is normal by PT. 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 Ja Guillory Code(s): Z98.890 - Other specified postprocedural states Category: Surgical Plan: Shivam is doing well but there is no need to push ROM with PT. He is s/p capsular plication and states PT is not sure what to do Coding Level of Care Code Global (24562) Diagnoses S/P arthroscopy of right shoulder Z98.890
== END 2024-01-22 09:54 | disposition home or self-care (01) ==
PROVIDERS: PCP Internal Medicine; Visit Provider Orthopaedic Surgery
DX: Z98.890 Other specified postprocedural states (principal)
CPT/HCPCS: 99024

== ENCOUNTER → 2024-01-22 09:22 | Outpatient (BNVA) | payer OTHER, SELFPAY | PROVIDERS: PCP Internal Medicine; Visit Provider Orthopaedic Surgery | DX: Z47.89 Encounter for other orthopedic aftercare (principal); Z98.890 Other specified postprocedural states | CPT/HCPCS: 99212 ==

== ENCOUNTER 2024-01-27 06:03 | Day surgery (SDC) | payer OTHER, SELFPAY ==
[2024-01-23 10:53] VITALS: BMI 21.9
--- NOTE | 2024-01-23 13:13 | P.CONAN_ITS ---
Documented by User: Alyssa Neri NP 01/23/24 13:13 HPI - Anesthesia Eval Consult details Narrative: 33yo M for Cystoscopy Hydrodistention of Bladder s/p shoulder scope 11/2023 with GA-ETT 7.5 PMFSH Active Problems Active Problems: All Active Problems S/P arthroscopy of right shoulder (Acute ~12/17/23) Urinary urgency (Acute) Sensation of pressure in bladder area (Acute) Urinary frequency (Acute) Rectal bleeding (Acute) Polyuria (Acute) Elevated alkaline phosphatase level (Acute) Dislocation of right shoulder joint (Acute) Anemia (Acute) Physical exam (Acute) Past Medical History Medical History Dislocation of right shoulder joint Anemia Urinary urgency Family History Family History Mother Asthma Family history of problems with anesthesia: No Surgical History Surgical History History of arthroscopy of right shoulder History of Problems with Anesthesia: No Social History Social History Housing: House Alcohol intake: never Comment: COUNTS CORRECT Patient Tobacco Use Status: Never used Tobacco Current occupational status: employed 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 Cognitive needs: No Hearing needs: No Vision needs: Yes Meds Allergies Allergy/AdvReac Type Severity Reaction Status Date / Time No Known Allergies Allergy Verified 01/27/24 06:18 [No Known Allergies*] Home Medications ?Medication ?Instructions ?Recorded ?Confirmed ?Last Taken ?Type cetirizine 10 mg tablet (Zyrtec) 10 mg PO DAILY PRN allergies 01/27/24 01/27/24 Unknown History Exam Height,Weight and Vital Signs: Height 5 ft 7 in Weight 63.503 kg Assessment and Plan Assessment Anesthesia Assessment: Chart Reviewed Final Anesthetic Review Family History of Problems with Anesthesia: No History of Problems with Anesthesia: No Documented by User: Tammy Carlos MD 01/27/24 07:20 [facility] Past Medical History Medical History Dislocation of right shoulder joint Anemia Urinary urgency Family History Family History Mother Asthma Surgical History Surgical History History of arthroscopy of right shoulder Social History Social History Housing: House Alcohol intake: never Comment: COUNTS CORRECT Patient Tobacco Use Status: Never used Tobacco Current occupational status: employed 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 Cognitive needs: No Hearing needs: No Vision needs: Yes Meds Allergies Allergy/AdvReac Type Severity Reaction Status Date / Time No Known Allergies Allergy Verified 01/27/24 06:18 [No Known Allergies*] Home Medications ?Medication ?Instructions ?Recorded ?Confirmed ?Last Taken ?Type cetirizine 10 mg tablet (Zyrtec) 10 mg PO DAILY PRN allergies 01/27/24 01/27/24 Unknown History Exam Airway Mallampati Class: II TM Dist: >3cm Neck ROM: Full Loose/Missing/Broken Teeth: No Heart: RRR Lungs: CTA Assessment and Plan Assessment Anesthesia Assessment: Anesthesia Plan Discussed Final Anesthetic Review NPO: Yes ASA Class: II Final Preanesthetic Review: Meds/Allgs Chart Reviewed, Consent Obtained/Reviewed and Anes Risks/Benef Reviewed Patient Risk: Low Procedure Risk: Low Anesthetic Plan Anesthetic Plan: GA Disposition: Standard PACU
[2024-01-27] VITALS (11 sets, daily range): BP systolic 97–166; BP diastolic 61–99; PULSE 61–76; RESP 14–18; TEMP 36.1–36.5; O2SAT 95–100; BMI 23.5
[2024-01-27] MEDS: Lactated Ringers 1,000 ML 100 ML IVCONT (06:39)
--- NOTE | 2024-01-27 07:17 | MHC.SHP ---
Pre-Procedural Eval Section A - 24 Hr Update-Section A only Date of Service: 01/27/24 The patient is an INPATIENT: No The patient has been examined within 24 hours of the surgical procedure. The History & Physical has been completed within 30 days and I have reviewed it.: Yes Section B - Complete if H&P > 30 days Chief Complaint: Urgency of urination Allergies: Allergies Allergy/AdvReac Type Severity Reaction Status Date / Time No Known Allergies Allergy Verified 01/27/24 06:18 [No Known Allergies*] Plan Diagnosis/Plan: Unchanged I have reviewed the history and physical and performed a pertinent physical examination on my patient. No changes have occurred unless specified. Cystoscopy Hydrodistension. Discussed risks to include but not limited to, blood in the urine, burning with urination, urgency. Time Spent With Patient Time: Total time managing care of this patient today ____ minutes.
--- NOTE | 2024-01-27 08:01 | P.OP_ITS ---
Operative Note Operative Note Date of Service: 01/27/24 Narrative: PREOP DIAGNOSIS: Urinary urgency, bladder pressure, microscopic hematuria POSTOP DIAGNOSIS: Interstitial cystitis, Urinary urgency, bladder pressure, microscopic hematuria, PROCEDURE: CYSTOSCOPY HYDRODISTENTION, BLADDER INSTALLATION Anethesia: General Surgeon: Dr. Yrn Driver Indications: Persistent urinary urgency, bladder pressure. Urinalysis negative for signs of infection. Renal ultrasound 01/12/2024, within normal limits negative for renal calculi. Details of procedure: The patient was brought into the operating room placed on the OR table in supine position. 2 g of Ancef IV. General anesthesia was administered. The patient was repositioned into lithotomy position, prepped and draped in the usual sterile fashion. Time-out was done per protocol. A 22 fr cystoscope was placed transurethrally into the bladder. The bulbous urethra was within normal limits. The prostatic urethra was nonobstructive. The right and left ureteral orifices were visualized. The entire bladder was visualized. There were no suspicious bladder lesions seen. The bladder was filled with sterile water at 80 cm of water pressure under gravity. The bladder was diste nded for 2 minutes. Bladder capacity measured 500 mL. Revisualization of the bladder, noted moderate glomerulations on several quadrants of the bladder. No Daryl ulcerations visualized. The bladder was refilled with sterile water again at 80 cm of water pressure under gravity. The bladder was distended for 4 minutes. The fluid was drained from the bladder and measured 625 mL. The cystoscope was removed. 2% lidocaine urojet was passed transurethrally, Solution of (1% lidocaine plain, 15 mL, 0.5 % Marcaine 15 mL mixed with 30,000 units of heparin concentration 5000 units per mL total of 6 mL hepaine) instilled transurethrally through a 14 Tamazight catheter into the bladder. The patient was brought out of anesthesia and taken to recovery in stable condition. Complications: None Drains: none
[2024-01-27] MEDS: Acetaminophen 325 MG TABLET 650 MG PO (08:18)
[2024-01-27] MEDS: Phenazopyridine HCL 200 MG TABLET PO (08:19)
[2024-01-27] MEDS: oxyCODONE HCl Immed Release 5 MG TABLET PO (08:25)
[2024-01-27] MEDS: fentaNYL citrate/PF 100 MCG/2 ML VIAL 25 MCG IVPUSH ×2 (08:34→08:41)
[2024-01-27] MEDS: hydrOXYzine HCL 25 MG TABLET PO (08:34)
== END 2024-01-27 09:57 | disposition home or self-care (01) ==
PROVIDERS: PCP Internal Medicine; Visit Provider Urology
PROC: 0T7B7ZZ Dilation of Bladder, Via Natural or Artificial Opening (ICD-10-PCS; CPT 52260; principal; 2024-01-27 07:30)
DX: N30.10 Interstitial cystitis (chronic) without hematuria (principal); R39.15 Urgency of urination; R35.0 Frequency of micturition; R39.89 Other symptoms and signs involving the genitourinary system; D64.9 Anemia, unspecified
CPT/HCPCS: 52260; 51700; J0690; J1100; J1644; J2250; J2405; J2704; J2795; J3010

== ENCOUNTER → 2024-01-27 06:03 | Outpatient (BNV) | payer OTHER, SELFPAY | PROVIDERS: PCP Internal Medicine; Visit Provider Urology | DX: R39.15 Urgency of urination (principal); R31.29 Other microscopic hematuria | CPT/HCPCS: 52260 ==

== ENCOUNTER 2024-02-06 06:24 | Outpatient (REF) | payer OTHER, SELFPAY ==
[2024-02-06 10:26] LABS: MANUAL DIFF FLAG NO
[2024-02-06 10:38] LABS: Basophils Percent Auto 0.5 % (0-2); Eosinophils Absolute Auto 0.5 X10*3/uL (0.0-0.4); Eosinophils Percent Auto 6.2 % (0-4); Hematocrit 40.6 % (42.0-52.0); Hemoglobin 13.3 g/dl (14.0-18.0); Imm Gran Abs Auto 0.03 X10*3/uL (0.00-0.03); Imm Gran Pct Auto 0.4 % (0.0-0.4); Lymphocytes Absolute Auto 2.5 X10*3/uL (1.2-4.9); Lymphocytes Percent Auto 32.5 % (20-40); Mean Corpuscular HGB Conc 32.8 g/dl (31.0-36.0); Mean Corpuscular Hemoglobin 27.3 pg (27.0-33.0); Mean Corpuscular Volume 83.2 fL (80.0-98.0); Mean Platelet Volume 10.2 fL (9.4-12.4); Monocytes Absolute Auto 0.9 X10*3/uL (0.1-1.2); Monocytes Percent Auto 11.4 % (2-11); Neutrophils Absolute Auto 3.7 x10*3/uL (2.0-8.3); Platelet Count 276 X10*3/uL (160-400); Red Blood Count 4.88 X10*6/uL (4.60-5.80); Red Cell Distribution Width 12.3 % (11.0-16.0); White Blood Count 7.6 X10*3/uL (4.8-10.8)
[2024-02-06 10:51] LABS: Appearance Urine Clear; Color Urine Yellow; Glucose Urine UA Negative (Negative); Leukocyte Esterase Urine Negative (Negative); Nitrite Urine Negative (Negative); Urine Blood Negative (Negative); Urine Ketones Negative (Negative); Urine Protein Negative (Neg-Trace)
[2024-02-06 11:02] LABS: Bacteria Urine None Seen (None Seen); Hyaline Casts Urine 0-2 /LPF (0-2); RBC Urine 0-2 /HPF (0-2); Squamous Epithelial Cell Urine 0-2 /HPF (0-2); WBC Urine 0-5 /HPF (0-5)
[2024-02-06 11:21] LABS: Alanine Aminotransferase 17 U/L (0-40); Albumin Level 4.3 g/dL (3.5-5.0); Alkaline Phosphatase 124 U/L (39-117); Anion Gap 12 (12-20); Aspartate Amino Transferase 18 U/L (5-37); Bilirubin Total 0.4 mg/dL (0.0-1.0); Blood Urea Nitrogen 13 mg/dL (9-16); Calcium 9.6 mg/dL (8.4-10.2); Carbon Dioxide 28 mmol/L (22-29); Chloride 105 mmol/L (96-108); Cholesterol 194 mg/dL (<200); Estimated Glomerular Filt Rate > 60; Glucose Fasting 81 mg/dL (60-99); HDL Cholesterol 59 mg/dL (>40); LDL Cholesterol Calculated 119 mg/dL (<100); Potassium 4.2 mmol/L (3.3-5.1); Sodium 141 mmol/L (135-145); Total Protein 7.3 g/dL (6.5-8.0); Triglycerides 80 mg/dL (<150)
[2024-02-06 11:30] LABS: Folate 11.9 ng/mL (> or = 4.0); Vitamin B12 785 pg/mL (200-900)
[2024-02-09 14:39] LABS: Iron 79 mcg/dL (45-160); Percent Iron Saturation 28 % (15-50); Total Iron Binding Capacity 281 mcg/dL (228-428); Unsaturated Iron Binding 202 ug/dL
== END 2024-02-06 06:25 | disposition home or self-care (01) ==
LOC: HO.HMGCLDS 06:24
PROVIDERS: PCP Internal Medicine; Visit Provider Internal Medicine
DX: Z00.00 Encounter for general adult medical examination without abnormal findings (principal); D64.9 Anemia, unspecified
CPT/HCPCS: 36415; 80053; 80061; 81001; 82607; 82746; 83540; 85025

== ENCOUNTER → 2024-02-09 10:08 | Outpatient (BNVA) | payer OTHER, SELFPAY | PROVIDERS: PCP Internal Medicine; Visit Provider Urology | DX: R39.15 Urgency of urination (principal); R35.0 Frequency of micturition; R39.89 Other symptoms and signs involving the genitourinary system | CPT/HCPCS: 51798 ==

== ENCOUNTER 2024-02-09 13:07 | Outpatient (AMB) | payer OTHER, SELFPAY ==
[2024-02-09 13:17] VITALS: BP 98/64; PULSE 73; O2SAT 98; BMI 22.9
--- NOTE | 2024-02-09 13:17 | MHC.PC.OV ---
Vital Signs 02/09/24 13:17 Height 5 ft 7 in Weight 146 lb BMI 22.9 BP 98/64 Blood Pressure Location Rt brachial Position Sitting Pulse 73 Pulse Source Pulse Oximeter Pulse Oximetry (%) 98 Oxygen Delivery Method Room Air Intake Visit Reasons: Annual PE Intake Note: Pt is here today for PE. Allergies No Known Allergies [No Known Allergies*] Allergy (Verified 02/09/24 13:18) Medication List - Last Reconciled 02/09/24 by Heidi Souza MD cetirizine (Zyrtec) 10 mg PO DAILY PRN Tobacco use date assessed: 02/09/24 Dental Screening Dental Screen Date: 02/09/24 Did you have a dental visit in the last 12 months?: Yes Did you have a dental problem in the last 6 months where you did not have access to dental care?: No Was dental information given to patient?: Patient has dentist HPI Annual PE HPI Details Pt presents for PE. He complains of persistent chronic bright red blood per rectum once or twice a month usually when he is constipated. Patient was referred 2 years ago to surgery specialist but did not keep an appointment. He denies abdominal pain, weight lost melena. Patient complains of spring time seasonal allergies getting worse and [id number] Claritin or Zyrtec are not effective. 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 92529 - PHQ-9 Billing: Patient declined-do not bill Source: Developed by Drs. Quinton Fitzgerald, ColleenEnmanuel Ludwig and colleagues, with an educational juma from [employer]. Thrive Questionnaire Date Thrive assessed: 02/09/24 What is your living situation today?: I choose not to answer this question Within the past 12 months, did the food you bought not last and you didn't have the money to get more?: I choose not to answer this question Within the past 12 months, did you worry whether your food would run out before you got money to buy more?: I choose not to answer this question Do you have trouble paying for medicines?: I choose not to answer this question Do you have trouble getting transportation to medical appointments?: I choose not to answer this question Do you have trouble paying your heating and electricity bill?: I choose not to answer this question Do you have trouble taking care of your child, family member or friend?: I choose not to answer this question Do you have trouble with day-to-day activities such as bathing, preparing meals, shopping, managing finances, etc.?: I choose not to answer this question Are you currently unemployed and looking for a job?: I choose not to answer this question Are you interested in more education?: I choose not to answer this question Please select the resources that you would like help with: None THRIVE Score: 0 AUDIT C Alcohol Use Questionnaire (AUDIT-C) 1. How often do you have a drink containing alcohol?: Never 3. How often do you have six or more drinks on one occasion?: Never Total Score: 0 MASON-7 AMB Questionnaire MASON-7 Date MASON - 7 assessed: 08/28/22 Source: Developed by Drs. Quinton Fitzgerald, Enmanuel Kat and colleagues, with an educational juma from [employer]. MASON-7 Assessment Billing MASON-7 Assessment Tool: pt declined-do not bill Review of Systems Const All systems reviewed & are unremarkable except as noted in HPI and below Reports no additional complaints Eyes Reports no additional complaints ENT Reports no additional complaints Card Reports no additional complaints Resp Reports no additional complaints GI Reports no additional complaints Physical exam (Primary Care) Vital Signs: Last Vital Signs Pulse 73 02/09/24 13:17 BP 98/64 02/09/24 13:17 Pulse Ox 98 02/09/24 13:17 Oxygen Delivery Method Room Air 02/09/24 13:17 BMI result Body Mass Index 22.9 Tobacco/Smoking Status: Tobacco use Status Tobacco use date assessed 02/09/24 02/09/24 13:19 Patient Tobacco Use Status Never used Tobacco 02/09/24 13:47 e-Cigarette/Vaping Use 02/09/24 13:19 Thrive Assessment: Date of Thrive Assessment Date Thrive assessed 02/09/24 02/09/24 13:47 Const General: no acute distress HENMT Head: Yes normal to inspection Face and sinus: Yes normal facial exam Mouth: Normal oral and palatal mucosa present Throat: Yes posterior oropharynx normal Eyes General: appearance normal, both eyes and all related structures Neck Neck: Yes no lymphadenopathy and Yes supple Resp Effort & Inspection: normal respiratory effort Auscultation: clear to auscultation bilaterally Cardio Rhythm: regular rhythm Heart sounds: S1 normal heart sound present GI Inspection: Yes normal to inspection Palpation (GI): Soft to palpation Percussion: Yes normal to percussion Auscultation: normal bowel sounds Assessment and Plan Assessment & Plan (1) Rectal bleeding: Code(s): K62.5 - Hemorrhage of anus and rectum Plan: Referred to GI, constipation prevention discussed with the patient (2) Anemia: Code(s): D64.9 - Anemia, unspecified Plan: For borderline low hemoglobin level check iron studies (3) Seasonal allergic rhinitis: Code(s): J30.2 - Other seasonal allergic rhinitis Plan: Patient will try Ivette will be referred to zinc furnace charger (4) Elevated alkaline phosphatase level: Code(s): R74.8 - Abnormal levels of other serum enzymes Plan: Check GGTP and hepatitis serologies (5) Physical exam: Code(s): Z00.00 - Encounter for general adult medical examination without abnormal findings Plan: Well-balanced diet regular physical activity discussed with the patient Orders: Orders IRON PROFILE Today D64.9 - Anemia, unspecified Reticulocyte Count Today D64.9 - Anemia, unspecified Alkaline Phosphatase Bone Today R74.8 - Abnormal levels of other serum enzymes Liver Kidney Microsomal Ab Today R74.8 - Abnormal levels of other serum enzymes DILLAN Reflex Titer and Pattern Today R74.8 - Abnormal levels of other serum enzymes Gamma Glutamyl Transpeptidase Today R74.8 - Abnormal levels of other serum enzymes Hepatitis A,B,C Profile Today R74.8 - Abnormal levels of other serum enzymes Referrals Allergy & Immunology Referral J30.2 - Other seasonal allergic rhinitis Gastroenterology Referral D64.9 - Anemia, unspecified, K62.5 - Hemorrhage of anus and rectum Medications: New fexofenadine (Ivette Allergy) 180 mg PO DAILY 90 tabs 0RF Coding Level of Care Code Est Pt Prev Care 18-39y(22995) Diagnoses Rectal bleeding K62.5 Anemia D64.9 Seasonal allergic rhinitis J30.2 Elevated alkaline phosphatase level R74.8 Physical exam Z00.00
== END 2024-02-09 14:26 | disposition home or self-care (01) ==
PROVIDERS: PCP Internal Medicine; Visit Provider Internal Medicine
DX: K62.5 Hemorrhage of anus and rectum (principal); D64.9 Anemia, unspecified; J30.2 Other seasonal allergic rhinitis; R74.8 Abnormal levels of other serum enzymes; Z00.00 Encounter for general adult medical examination without abnormal findings
CPT/HCPCS: 99395

== ENCOUNTER 2024-02-09 14:23 | Outpatient (REF) | payer OTHER, SELFPAY ==
[2024-02-09 16:35] LABS: Immature Retic Fraction 8.5 % (2.3-13.4); Retic HGB Equivalent 31.6 pg (30.0-35.0); Reticulocyte Percent 1.4 % (0.5-1.8); Reticulocytes Absolute 0.067 X10*6/uL (0.026-0.095)
[2024-02-09 17:04] LABS: Gamma Glutamyl Transpeptidase 37 U/L (11-51); Iron 92 mcg/dL (45-160); Percent Iron Saturation 33 % (15-50); Total Iron Binding Capacity 280 mcg/dL (228-428); Unsaturated Iron Binding 188 ug/dL
[2024-02-10 09:49] LABS: HBS Num1 15.15 mIU/mL (0-7.99); HBc Num1 0.08 S/CO (0.00-0.79); HBsAGNum1 0.25 S/CO (0.00-0.99); Hepatitis A Antibody IgM 0.19 Index (0-0.79); Hepatitis B Core Antibody Nonreactive (Nonreactive); Hepatitis B Surface Antigen Negative (Negative); ~HepC Num1 0.08 S/CO (0.00-0.79); ~Hepatitis A Antibody IgM Nonreactive (Nonreactive); ~Hepatitis B Surface Antibody REACTIVE (Nonreactive); ~Hepatitis C Antibody Nonreactive (Nonreactive)
[2024-02-12 16:08] LABS: Anti Nuclear Antibody Screen NEGATIVE (NEGATIVE)
[2024-02-12 20:44] LABS: Alkaline Phosphatase Bone 21.6 mcg/L (7.7-21.3)
[2024-02-15 12:19] LABS: Liver Kidney Microsomal Ab <=20.0 U (<=20.0)
== END 2024-02-09 14:24 | disposition home or self-care (01) ==
LOC: HO.HMGCLDS 14:23
PROVIDERS: PCP Internal Medicine; Visit Provider Internal Medicine
DX: D64.9 Anemia, unspecified (principal); R74.8 Abnormal levels of other serum enzymes
CPT/HCPCS: 36415; 82977; 83540; 84075; 85045; 86038; 86376; 86704; 86706; 86709; 86803; 87340

== ENCOUNTER 2024-02-13 10:43 | Outpatient (AMB) | payer OTHER, SELFPAY ==
--- NOTE | 2024-02-13 10:57 | MHC.OFFVIS ---
Vital Signs 02/13/24 11:00 Height 5 ft 7 in Weight 145 lb BMI 22.7 BP 116/61 Blood Pressure Location Lt brachial Position Sitting Pulse 69 Intake Visit Reasons: Anemia Intake Note: New consult for Anemia Patient cc: Nauseas, abdominal pain with grease food, constipation with bloody stool, tiredness and dizziness. 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 Patient reports that for the past 2 years he has been dealing with occasional blood in his stool after bowel movement. Patient states that it happens once or twice every couple weeks. Patient does admit to be constipated. Denies any rectal pressure, blood. Has not noticed if he has hemorrhoids or not. Patient had fecal testing done and it was negative for occult blood. Mildly anemic Laboratory Tests 02/06/24 06:33 Hgb 13.3 L Hct 40.6 L MCV 83.2 Patient admits to be constipated. Usually moves his bowels every day in the morning, however many times he reports that he has to strain in order to have a bowel movement. Occasional abdominal cramping specially with greasy food. Patient denies dyspepsia, dysphagia or odynophagia. Patient denies any melena, unintentional weight loss or ribbon like stools. 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 Cognitive needs: No Hearing needs: No Vision needs: Yes Review of Systems Const Denies weight gain and Denies weight loss ENT Reports no additional complaints, Denies dysphagia and Denies odynophagia Card Reports no additional complaints Resp Reports no additional complaints GI Reports abdominal pain (Occasional), Denies belching, Denies melena, Denies bloating, Reports hematochezia, Reports constipation, Denies dysphagia, Denies excessive flatus, Denies dyspepsia, Denies heartburn, Denies diarrhea, Denies loose stools, Reports nausea, Denies odynophagia and Denies vomiting Reports no additional complaints Musc Reports no additional complaints Neuro Reports no additional complaints Psych Reports no additional complaints Endo Reports no additional complaints Physical Exam Vital Signs: BMI result Body Mass Index 22.7 Const General: healthy appearing, no acute distress and well developed Nutritional Appearance: well nourished Orientation/consciousness: patient oriented x3 Resp Effort & Inspection: normal respiratory effort, able to speak in complete sentences, no tracheal deviation and symmetric chest movement Auscultation: clear to auscultation bilaterally Cardio Rate: regular rate GI Inspection: Yes normal to inspection and No distended Palpation (GI): Soft to palpation, not firm, nontender and No hepatosplenomegaly present Auscultation: normal bowel sounds General: Yes no CVA tenderness Back/Spine/Pelvis Back: no CVA tenderness Skin General skin exam: elasticity normal, turgor normal and dry skin Neuro General: patient oriented x3 Psych Appearance: grossly normal Mental Status: mental status grossly normal Assessment & Plan Assessment & Plan (1) Rectal bleeding: Code(s): K62.5 - Hemorrhage of anus and rectum Category: Medical (2) Anemia: Code(s): D64.9 - Anemia, unspecified Category: Medical Qualifiers: Anemia type: unspecified type Qualified Code(s): D64.9 - Anemia, unspecified Plan Occasional blood after bowel movement. Mild anemia. Patient will be sent for colonoscopy. Message sent to surgical schedulers. In the meantime patient will start taking docusate sodium daily. Increase fluid intake and activity to promote better bowel motility. Patient will call our office if his symptoms will get worse. I will see him in the office in 2 months if he continues to have blood in his stool we will perform rectal exam. Today rectal exam was deferred. Patient declined. Patient is agreeable to this plan and verbalizes understanding of instructions. He was given the opportunity to ask questions and all questions answered. Thank you for allowing me to participate in his care Medications: New docusate sodium 100 mg PO DAILY 30 caps 3RF K59.00 - Constipation, unspecified Coding Level of Care Code New Pt Level 3 (87096) Diagnoses Rectal bleeding K62.5 Anemia, unspecified type D64.9 Anemia type: unspecified type Time Spent (min) 40 Comment 30 minutes spent with patient and additional 10 minutes spent reviewing his records
[2024-02-13 11:00] VITALS: BP 116/61; PULSE 69; BMI 22.7
== END 2024-02-13 11:19 | disposition home or self-care (01) ==
PROVIDERS: PCP Internal Medicine; Referring Provider Internal Medicine; Visit Provider Nurse Practitioner Family
DX: K62.5 Hemorrhage of anus and rectum (principal); D64.9 Anemia, unspecified
CPT/HCPCS: 99203

== ENCOUNTER → 2024-02-13 10:43 | Outpatient (BNVA) | payer OTHER, SELFPAY | PROVIDERS: PCP Internal Medicine; Referring Provider Internal Medicine; Visit Provider Nurse Practitioner Family | DX: K62.5 Hemorrhage of anus and rectum (principal); D64.9 Anemia, unspecified | CPT/HCPCS: 99202 ==

== ENCOUNTER 2024-02-19 13:50 | Outpatient (AMB) | payer OTHER, SELFPAY ==
--- NOTE | 2024-02-19 14:06 | A.OFFVIS_ITS ---
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 The patient states he still has bladder pressure and urgency. I discussed with the patient that Interstitial cystitis is a chronic condition in which the lining of the bladder is inflamed and symptoms may include bladder pressure, burning with urination, urgency or pelvic pain. The exact cause for IC is not known, but likely factors that contribute would be factors that affect the protective lining of the bladder allowing urine to irritate the bladder wall. Contributing factors may include Recurrent UTI's, autoimmune reaction, heredity or allergy. Treatment includes lifestyle changes including diet modification, anti-spasm and anti-histamine medications, elmiron, discussed SE to include elevation of liver function enzymes, retinal changes. Myrbetriq 25 mg daily, Hydroxyzine 25 mg qhs, IC diet discussed and pamphlet given discussed if symptoms persisit consider trial of Elmiron. Pt will call Nursed in one month to update on how his is doing on the meds. 01/12/24- Renal US- kidneys WNL. Review of chart: 12/08/23--Shivam is a 33year old male here for evaluation of urinary frequency, he was initially evaluated on 11/28/2022. Cystoscopy hydrodistention was discussed at that time that the patient states he had to cancel procedure but is now ready to proceed with further evaluation for his bladder symptoms. He states that while awake she has urgency and frequency about 20 times And is up 5-7 times when sleeping. He denies gross hematuria. If he can not get to the bathroom he feels pressure and pain in the bladder area. Prostate cancer family history both grandfathers maternal and paternal Denies problems with erections denies pain with ejaculation. Reviewed bladder ultrasound dated 09/25/2022, urine measured 159 mL postvoid residual 7.3 mL, prostate 10 mL I have discussed his general fluid intake; he does have about 16 oz of an energy drink but generally does not appear to be having excess fluid intake. He states that he has tried stopping caffeine intake but it has not made a difference in his urinary symptoms. Evaluation today: Urinalysis negative; Bladder scan PVR 0 mL. 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 Cognitive needs: No Hearing needs: No Vision needs: Yes Review of Systems Const All systems reviewed & are unremarkable except as noted in HPI and below Reports no additional complaints Eyes Reports no additional complaints ENT Reports no additional complaints Card Reports no additional complaints Resp Reports no additional complaints GI Reports no additional complaints Reports as per HPI Musc Reports no additional complaints Skin/Breast Reports system reviewed and no additional complaints, except as documented Neuro Reports no additional complaints Psych Reports no additional complaints Endo Reports no additional complaints Elver/Lymph Reports no additional complaints Aller/Immun Reports no additional complaints Results AMB Urinalysis, Automated UA Leukoctes 0 Tanika/uL Last Edit by Jil Nava [facility] on 02/19/24 14:22 UA Nitrite Negative Last Edit by Jil Nava [facility] on 02/19/24 14:22 UA Urobilinogen 0.2 mg/dL Last Edit by Jil Nava [facility] on 02/19/24 14:2 2 UA Protein 0 mg/dL Last Edit by Jil Nava [facility] on 02/19/24 14:22 UA pH 5.5 Last Edit by Jil Nava [facility] on 02/19/24 14:22 UA Blood 25 Jesse/uL Last Edit by Jil Nava [facility] on 02/19/24 14:22 1+ Jil Nava 02/19/24 14:22 UA Specific [place] 1.020 Last Edit by Jil Nava [facility] on 02/19/24 14: 22 UA Ketone Negative Last Edit by Jil Nava [facility] on 02/19/24 14:22 UA Bilirubin 0 mg/dL Last Edit by Jil Nava [facility] on 02/19/24 14:22 UA Glucose 0 mg/dL Last Edit by Jil Nava [facility] on 02/19/24 14:22 Results Reviewed Results Reviewed: Laboratory Last Values Urine pH (Auto) 5.5 02/19/24 14:07 Specific [place] (Auto) 1.020 02/19/24 14:07 Urine Protein (Auto) 0 mg/dL 02/19/24 14:07 Glucose (UA)(Auto) 0 mg/dL 02/19/24 14:07 Urine Ketones (Auto) Negative 02/19/24 14:07 Urine Blood (Auto) 25 Jesse/uL 02/19/24 14:07 Urine Nitrite (Auto) Negative 02/19/24 14:07 Urine Bilirubin (Auto) 0 mg/dL 02/19/24 14:07 Urine Urobilinogen (Auto) 0.2 mg/dL 02/19/24 14:07 Leukocyte Esterase (Auto) 0 Tanika/uL 02/19/24 14:07 Date of Service: 01/12/24 EXAMINATION: US RETROPERITONEAL LIMITED (RENAL ONLY) CLINICAL INFORMATION: Other symptoms and signs involving the genitourinary system. COMPARISON: Ultrasound pelvis limited (bladder) 09/25/2022. Ultrasound abdomen complete 10/07/2018. TECHNIQUE: Real-time imaging of the kidneys. FINDINGS: RIGHT KIDNEY: 9.7 x 4.4 x 4.0 cm (SAG x AP x TRV). The kidney is normal in size, contour, and echogenicity. Renal cortical thickness is normal. No calculi or focal parenchymal lesions. No hydronephrosis. LEFT KIDNEY: 10.1 x 5.0 x 5.0 cm (SAG x AP x TRV). The kidney is normal in size, contour, and echogenicity. Renal cortical thickness is normal. No calculi or focal parenchymal lesions. No hydronephrosis. IMPRESSION: Unremarkable examination. Assessment & Plan Assessment & Plan (1) Urinary frequency: Code(s): R35.0 - Frequency of micturition Category: Medical (2) Sensation of pressure in bladder area: Code(s): R39.89 - Other symptoms and signs involving the genitourinary system Category: Medical (3) Urinary urgency: Code(s): R39.15 - Urgency of urination Category: Medical (4) Interstitial cystitis (chronic) without hematuria: Code(s): N30.10 - Interstitial cystitis (chronic) without hematuria Category: Medical Plan Myrbetriq 25 mg daily, Hydroxyzine 25 mg qhs, IC diet discussed and pamphlet given discussed if symptoms persisit consider trial of Elmiron. Pt will call Nursed in one month to update on how his is doing on the meds. Orders: Orders AMB Urinalysis Automated 02/19/24 Z13.9 - Encounter for screening, unspecified Medications: New mirabegron ER (Myrbetriq) 25 mg PO DAILY 30 tabs 1RF hydroxyzine pamoate (Vistaril) may cause drowsiness 25 mg PO BEDTIME 30 caps 2RF Patient Instructions: The patient had an opportunity to ask questions regarding treatment plan. The patient expressed understanding and agreement with the above treatment plan. The patient is aware they should contact our office by phone for worsening of their current condition or the appearance of new symptoms. Compliance is encouraged with any medications and followup testing that is ordered. It is a privilege to be allowed the opportunity to participate in the urologic care of your patient. If you have any questions or concerns regarding treatment for the above conditions please do not hesitate to contact me. The office telephone contact is [phone]. This note is constructed in part using voice recognition software. While every effort has been made to ensure accuracy rn bsn errors may have been inclu ded. Yours sincerely, Yrn Driver MD Coding Level of Care Code Est Pt Level 4 (23618) Diagnoses Urinary frequency R35.0 Sensation of pressure in bladder area R39.89 Urinary urgency R39.15 Interstitial cystitis (chronic) without hematuria N30.10
== END 2024-02-19 15:07 | disposition home or self-care (01) ==
PROVIDERS: PCP Internal Medicine; Visit Provider Urology
DX: R35.0 Frequency of micturition (principal); R39.89 Other symptoms and signs involving the genitourinary system; R39.15 Urgency of urination; N30.10 Interstitial cystitis (chronic) without hematuria
CPT/HCPCS: 99214

== ENCOUNTER → 2024-02-19 13:50 | Outpatient (BNVA) | payer OTHER, SELFPAY | PROVIDERS: PCP Internal Medicine; Visit Provider Urology | DX: R35.0 Frequency of micturition (principal); R39.15 Urgency of urination; N30.10 Interstitial cystitis (chronic) without hematuria | CPT/HCPCS: 81003; 99212 ==

== ENCOUNTER 2024-03-04 10:26 | Outpatient (AMB) | payer OTHER, SELFPAY ==
--- NOTE | 2024-03-04 10:40 | MHC.OFFVIS ---
Vital Signs 03/04/24 10:45 Height 5 ft 7 in Weight 145 lb BMI 22.7 Intake Visit Reasons: OV RT Shoulder caps plication 12/17/23 NE Intake Note: Shivam is a 33 year old left hand dominant male who presents today for a follow up of his right shoulder s/p Right Shoulder Capsular Plication 12/17/23. Patient reports that he si doing well with no conerns. Allergies No Known Allergies [No Known Allergies*] Allergy (Verified 03/04/24 10:41) HPI HPI OV RT Shoulder caps plication 12/17/23 NE: Details: Ten weeks status post right shoulder capsular plication. He feels well. He has no complaints. He is doing physical therapy. He has going to the gym. He has had no repeat dislocations. 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 Assessment & Plan Assessment & Plan (1) Instability of right shoulder joint: Code(s): M25.311 - Other instability, right shoulder Category: Medical Plan: Status post capsular plication doing well. Reviewed the patho anatomy of this diagnosis and recommend he continue strengthening. (2) S/P arthroscopy of right shoulder: Onset Date: ~12/17/23 Comment: Right shoulder capsular plication; Dr. Ja Guillory Code(s): Z98.890 - Other specified postprocedural states Category: Surgical Plan: doing well may follow up in 3 months Coding Level of Care Code Global (21437) Diagnoses Instability of right shoulder joint M25.311 S/P arthroscopy of right shoulder Z98.890
[2024-03-04 10:45] VITALS: BMI 22.7
== END 2024-03-04 13:32 | disposition home or self-care (01) ==
PROVIDERS: PCP Internal Medicine; Visit Provider Orthopaedic Surgery
DX: M25.311 Other instability, right shoulder (principal); Z98.890 Other specified postprocedural states
CPT/HCPCS: 99024

== ENCOUNTER → 2024-03-04 10:26 | Outpatient (BNVA) | payer OTHER, SELFPAY | PROVIDERS: PCP Internal Medicine; Visit Provider Orthopaedic Surgery | DX: M25.311 Other instability, right shoulder (principal); Z98.890 Other specified postprocedural states | CPT/HCPCS: 99212 ==

== ENCOUNTER 2024-03-13 10:59 | Outpatient (AMB) | payer OTHER, SELFPAY ==
[2024-03-13 11:03] VITALS: BP 100/54; PULSE 60; TEMP 36.8; O2SAT 100; BMI 23.3
--- NOTE | 2024-03-13 11:03 | AM.OFFWIN_ITS ---
Intake Vital Signs 03/13/24 11:03 Height 5 ft 7 in Weight 149 lb BMI 23.3 BP 100/54 L Blood Pressure Location Rt brachial Position Sitting Pulse 60 Pulse Source Pulse Oximeter Temp 98.2 F Temp Source Oral Pulse Oximetry (%) 100 Oxygen Delivery Method Room Air Intake Visit Reasons: EP irritation/rash lft shoulder Intake Note: Pt is here today c/o Lt shoulder rash x1week Patient Tobacco Use Status: Never used Tobacco Allergies No Known Allergies [No Known Allergies*] Allergy (Verified 03/13/24 11:05) HPI HPI Comments History of Present Illness Details 33-year-old male presents for rash on th e upper shoulder times 1 week. 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 Cognitive needs: No Hearing needs: No Vision needs: Yes Review of Systems Skin/Breast Reports rash Physical Exam Vital Signs: Last Vital Signs Temp 98.2 F 03/13/24 11:03 Pulse 60 03/13/24 11:03 BP 100/54 L 03/13/24 11:03 Pulse Ox 100 03/13/24 11:03 Oxygen Delivery Method Room Air 03/13/24 11:03 BMI result Body Mass Index 23.3 Const General: cooperative, healthy appearing, no acute distress and alert Orientation/consciousness: patient oriented x3 Limitations: no limitations HEENT Head: Yes normal to inspection Ears: hearing grossly normal bilaterally General nose exam: Normal external nose present Resp Effort & Inspection: normal respiratory effort and able to speak in complete sentences Cardio Rate: regular rate Skin Other: Area of erythema with bull's-eye like marked on the upper posterior aspect of the left shoulder warm to the touch General skin exam: no rashes or lesions noted Neuro General: patient oriented x3 Extrem General: Yes normal to inspection Assessment & Plan Assessment & Plan (1) Suspected Lyme disease: Code(s): R68.89 - Other general symptoms and signs Plan: No known tick bite however rash has resembling erythema migraine suspected Lyme versus cellulitis 2/2 bug bite given patient works out in the garden regularly. Will treat with doxycycline Medications: New doxycycline hyclate 100 mg PO BID 10 days 20 caps 0RF R68.89 - Other general symptoms and signs Coding Level of Care Code Est Pt Level 4 (15993) Diagnoses Suspected Lyme disease R68.89
== END 2024-03-13 11:18 | disposition home or self-care (01) ==
PROVIDERS: PCP Internal Medicine; Visit Provider Physician Assistant
DX: R68.89 Other general symptoms and signs (principal)
CPT/HCPCS: 99051; 99214

== ENCOUNTER 2024-04-09 14:59 | Outpatient (AMB) | payer OTHER, SELFPAY ==
--- NOTE | 2024-04-09 15:06 | A.OFFVIS_ITS ---
Vital Signs 04/09/24 15:11 Height 5 ft 7 in Weight 150 lb 5.684 oz BMI 23.5 BP 108/62 Blood Pressure Location Rt brachial Position Sitting Pulse 58 Pulse Source Pulse Oximeter Pulse Oximetry (%) 99 Oxygen Delivery Method Room Air Intake Visit Reasons: 2 month follow up Intake Note: Shivam presents in office today for a scheduled 2 mos FUV. CC; Pt is here today to discuss progress regarding sx management. Pt also had colace rx'd at their last visit. Pt reports that he has been doing OK, pt has seen a fair improvement in their sx. This is despite the fact that they have not been taking the colace. Pt did not receive it from the pharmacy he states. Pt has been making lifestyle changes which he states has been making an improvement in his sx he believes. First Coat Sander Required: No Allergies No Known Allergies [No Known Allergies*] Allergy (Verified 04/09/24 15:07) HPI HPI 2 month follow up: Details: LAST VISIT Rectal bleeding Anemia Plan Occasional blood after bowel movement. Mild anemia. Patient will be sent for colonoscopy. Message sent to surgical schedulers. In the meantime patient will start taking docusate sodium daily. Increase fluid intake and activity to promote better bowel motility. Patient will call our office if his symptoms will get worse. I will see him in the office in 2 months if he continues to have blood in his stool we will perform rectal exam. Today rectal exam was deferred. Patient declined. Patient is agreeable to this plan and verbalizes understanding of instructions. He was given the opportunity to ask questions and all questions answered. ? Thank you for allowing me to participate in his care Medications New docusate sodium 100 mg PO DAILY 30 caps 3RF K59.00 TODAY'S VISIT Patient is here today for follow-up and to discuss prep. Patient will have a procedure on Friday.. Occasional rectal bleed, however patient reports that it is better now. He is moving his bowels better. Change his diet after being diagnosed with cystitis. Eating more fruits and vegetables. Reports that he is moving his bowels well now. He is not taking Colace any longer. Denies any issues with anesthesia. No history of sleep apnea. Not on any anticoagulation medication. Denies any cardiac or respiratory symptoms. 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 Cognitive needs: No Hearing needs: No Vision needs: Yes Review of Systems Const Denies weight gain and Denies weight loss ENT Reports no additional complaints, Denies dysphagia and Denies odynophagia Card Reports no additional complaints Resp Reports no additional complaints GI Denies abdominal pain, Denies belching, Denies melena, Denies bloating, Denies change in bowel habits, Denies dysphagia, Denies excessive flatus, Denies dyspepsia, Denies heartburn, Denies diarrhea, Denies loose stools, Denies nausea, Denies odynophagia and Denies vomiting Reports no additional complaints Musc Reports no additional complaints Neuro Reports no additional complaints Psych Reports no additional complaints Endo Reports no additional complaints Physical Exam Vital Signs: Last Vital Signs Pulse 58 04/09/24 15:11 BP 108/62 04/09/24 15:11 Pulse Ox 99 04/09/24 15:11 Oxygen Delivery Method Room Air 04/09/24 15:11 BMI result Body Mass Index 23.5 Const General: healthy appearing, no acute distress and well developed Nutritional Appearance: well nourished Orientation/consciousness: patient oriented x3 Resp Effort & Inspection: normal respiratory effort, able to speak in complete sentences, no tracheal deviation and symmetric chest movement Auscultation: clear to auscultation bilaterally Cardio Rate: regular rate GI Inspection: Yes normal to inspection and No distended Palpation (GI): Soft to palpation, not firm, nontender and No hepatosplenomegaly present Auscultation: normal bowel sounds General: Yes no CVA tenderness Back/Spine/Pelvis Back: no CVA tenderness Skin General skin exam: elasticity normal, turgor normal and dry skin Neuro General: patient oriented x3 Psych Appearance: grossly normal Mental Status: mental status grossly normal Assessment & Plan Assessment & Plan (1) Rectal bleeding: Code(s): K62.5 - Hemorrhage of anus and rectum Category: Medical (2) Anemia: Code(s): D64.9 - Anemia, unspecified Category: Medical Qualifiers: Anemia type: unspecified type Qualified Code(s): D64.9 - Anemia, unspecified Plan Patient will have a diagnostic colonoscopy for rectal bleed. Denies any rectal pain. His symptoms subsided now. No history of sleep apnea. Not on any anticoagulation medication. No known family history of CRC. What to expect before during and after procedure discussed with patient. Discussed the importance of good bowel prep and clear liquid diet day before procedure. I will see patient after the procedure if he will polyps or any abnormal findings, however if patient will have no polyps and normal colonoscopy he does not need to follow-up in our office. Patient is agreeable to this plan and verbalizes understanding of instructions. He was given the opportunity to ask questions and all questions answered. Thank you for allowing me to participate in his care Medications: New bisacodyl (Dulcolax (bisacodyl)) take 4 tabs at noon the day before your colonoscopy 20 mg (4 x 5 mg) PO ONCE 1 day 4 tabs 0RF Z12.11 - Encounter for screening for malignant neoplasm of colon polyethylene glycol 3350 (Miralax) As directed by gastroenterology department at [facility] 238 grams PO ONCE 238 grams 0RF Z12.11 - Encounter for screening for malignant neoplasm of colon Coding Level of Care Code Est Pt Level 3 (72456) Diagnoses Rectal bleeding K62.5 Anemia, unspecified type D64.9 Anemia type: unspecified type Time Spent (min) 30 Comment 20 minutes spent with patient and additional 10 minutes spent reviewing his records
[2024-04-09 15:11] VITALS: BP 108/62; PULSE 58; O2SAT 99; BMI 23.5
== END 2024-04-09 15:38 | disposition home or self-care (01) ==
PROVIDERS: PCP Internal Medicine; Visit Provider Nurse Practitioner Family
DX: K62.5 Hemorrhage of anus and rectum (principal); D64.9 Anemia, unspecified
CPT/HCPCS: 99213

== ENCOUNTER → 2024-04-09 14:59 | Outpatient (BNVA) | payer OTHER, SELFPAY | PROVIDERS: PCP Internal Medicine; Visit Provider Nurse Practitioner Family | DX: K62.5 Hemorrhage of anus and rectum (principal); D64.9 Anemia, unspecified | CPT/HCPCS: 99212 ==

== ENCOUNTER 2024-04-12 11:36 | Day surgery (SDC) | payer OTHER, SELFPAY ==
--- NOTE | 2024-04-12 13:47 | MHC.SHP ---
Pre-Procedural Eval Section A - 24 Hr Update-Section A only Date of Service: 04/12/24 Section B - Complete if H&P > 30 days Chief Complaint: rectal bleeding,anemia, Relevant Family History (Specify if Yes): No Relevant Social History: None Present Medications: see Short Stay Collaborative assessment Medical History: Significant History (Dislocation of right shoulder joint Anemia Urinary urgency) History of Previous Operations: Relevant previous surgery/procedure and date(s) (arthroscopy) Allergies: Allergies Allergy/AdvReac Type Severity Reaction Status Date / Time No Known Allergies Allergy Verified 04/09/24 15:07 [No Known Allergies*] Review of Systems Sugical H&P ROS: Negative: Constitution, Cardiovascular, Respiratory, Neurological, Psychiatric, Hem-Onc, Allergic/Immunologic, Gastrointestinal, Genitourinary, Musculoskeletal, Integumentary, Endocrine and Eyes/Ears/Nose/Throat Exam Surgical H&P Exam: Normal: HEENT, Normal: Heart, Normal: Lungs, Normal: Extremities, Normal: Abdomen, Normal: Skin and Normal: Neurological Plan Diagnosis/Plan: Unchanged I have reviewed the history and physical and performed a pertinent physical examination on my patient. No changes have occurred unless specified. Time Spent With Patient Time: Total time managing care of this patient today ____ minutes.
[2024-04-12 13:59] VITALS: BMI 23.5
[2024-04-12 14:05] VITALS: BP 125/69; PULSE 53; RESP 16; TEMP 36.7; O2SAT 100
--- NOTE | 2024-04-12 14:06 | HO.ANESPROP2 ---
[facility] Active Problems Active Problems: All Active Problems Instability of right shoulder joint (Acute) Interstitial cystitis (chronic) without hematuria (Acute) Seasonal allergic rhinitis (Acute) S/P arthroscopy of right shoulder (Acute ~12/17/23) Urinary urgency (Acute) Sensation of pressure in bladder area (Acute) Urinary frequency (Acute) Rectal bleeding (Acute) Polyuria (Acute) Elevated alkaline phosphatase level (Acute) Dislocation of right shoulder joint (Acute) Anemia (Acute) Physical exam (Acute) Past Medical History Medical History Dislocation of right shoulder joint Anemia Urinary urgency Family History Family History Mother Asthma Family history of problems with anesthesia: No Surgical History Surgical History History of arthroscopy of right shoulder History of Problems with Anesthesia: No Social History Social History Housing: House Alcohol intake: never Comment: COUNTS CORRECT Patient Tobacco Use Status: Never used Tobacco Use of substances other than those prescribed or required for medical reasons: No Are you DNR?: No Advance Directives: No Advance Directives Information Provided: Yes service: No Current occupational status: employed 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 Cognitive needs: No Hearing needs: No Vision needs: Yes Meds Allergies Allergy/AdvReac Type Severity Reaction Status Date / Time No Known Allergies Allergy Verified 04/12/24 13:58 [No Known Allergies*] Exam Height,Weight and Vital Signs: Height 5 ft 7 in Weight 68.039 kg Airway Mallampati Class: II (per,anent lower retainer) TM Dist: >3cm Neck ROM: Full Heart: rrr Lungs: cta Assessment and Plan Assessment Anesthesia Assessment: Anesthesia Plan Discussed and Chart Reviewed Final Anesthetic Review Family History of Problems with Anesthesia: No History of Problems with Anesthesia: No NPO: Yes ASA Class: II Final Preanesthetic Review: No Changes in Pt Med Stat, Meds/Allgs Chart Reviewed and Consent Obtained/Reviewed Patient Risk: Low Procedure Risk: Low Anesthetic Plan Anesthetic Plan: MAC: Disposition: Standard PACU
--- NOTE | 2024-04-12 18:22 | P.OPN-COLO_ITS ---
Colonoscopy Operative Note Operative Note Date of Service: 04/12/24 Narrative: Operative Information Procedure Description: Colonoscopy Indication: rectal bleeding Anesthesia: MAC COLONOSCOPY Instrument: Olympus variable stiffness pediatric scope 190L Colonoscopy Monitoring: Vital signs and clinical assessment, continuous EKG monitoring, Pulse oximetry, Carbon Dioxide monitoring and blood pressure monitoring were done throughout the procedure. Colon withdrawal time was 11 minutes. Procedure: The patient was placed in the left lateral decubitis position and pre-procedure medications were administered. After a digital rectal examination of the ano-rectum, the video colonoscope was inserted into the rectum and advanced through the colon to the cecum/TI. The colonoscope was slowly withdrawn in a retrograde panoramic fashion and the colon mucosa was carefully examined including a retroflexed view of the rectum. Findings and interventions are described below. Procedure Difficulty: easy Findings: Terminal Ileum-normal Cecum:normal Right sided retroflexion- normal Ascending Colon: normal Transverse Colon -normal Descending Colon:normal Sigmoid Colon: normal Rectum: Retroflexion with small internal hemorrhoids seen, grade I Anorectum - normal Intervention: none Colon preparation: [place] Bowel Preparation Scale Right colon; 2 Transverse colon: 2 Left colon; 2 (0 = Unprepared colon segment with mucosa not seen due to solid stool that cannot be cleared. 1 = Portion of mucosa of the colon segment seen, but other areas of the colon segment not well seen due to staining, residual stool and/or opaque liquid. 2 = Minor amount of residual staining, small fragments of stool and/or opaque liquid, but mucosa of colon segment seen well. 3 = Entire mucosa of colon segment seen well with no residual staining, small fragments of stool or opaque liquid) Impression and Post Procedure Diagnosis: internal hemorrhoids Plan: High fiber diet leaflet Avoid straining at stool, epsom salts and sitz bath, anusol supps or cream Repeat Colonoscopy aged 45 or earlier if clinically indicated Above findings were reviewed with the patient and relevant handouts were provided if indicated.
[2024-04-12 18:56] VITALS: BP 124/56; PULSE 60; RESP 12; TEMP 36.3; O2SAT 99
[2024-04-12 19:10] VITALS: BP 115/63; PULSE 61; RESP 18; TEMP 36.8; O2SAT 100
== END 2024-04-12 19:12 | disposition home or self-care (01) ==
PROVIDERS: PCP Internal Medicine; Visit Provider Internal Medicine Gastroenterology
DX: K62.5 Hemorrhage of anus and rectum (principal); D64.9 Anemia, unspecified; K64.0 First degree hemorrhoids; R39.15 Urgency of urination
CPT/HCPCS: 45378; J2704

== ENCOUNTER → 2024-04-12 11:36 | Outpatient (BNV) | payer OTHER, SELFPAY | PROVIDERS: PCP Internal Medicine; Visit Provider Internal Medicine Gastroenterology | DX: K62.5 Hemorrhage of anus and rectum (principal); K64.0 First degree hemorrhoids | CPT/HCPCS: 45378 ==

== ENCOUNTER 2024-04-15 10:38 | Outpatient (AMB) | payer OTHER, SELFPAY ==
--- NOTE | 2024-04-15 10:41 | MHC.OFFVIS ---
Vital Signs 04/15/24 10:43 Height 5 ft 7 in Weight 150 lb BMI 23.5 Handedness Left Intake Visit Reasons: OV RT Shoulder caps plication f/u 12/17/23 NE Intake Note: Shivam is a 33 year old left hand dominant male who presents today for a follow up of his right shoulder s/p Right Shoulder Capsular Plication 12/17/23. Patient report he is doing well and has no concerns. Allergies No Known Allergies [No Known Allergies*] Allergy (Verified 04/15/24 10:43) HPI HPI OV RT Shoulder caps plication f/u 12/17/23 NE: Details: Shivam is a 33 year old left hand dominant male who presents today for a follow up of his right shoulder s/p Right Shoulder Capsular Plication 12/17/23. Patient report he is doing well and has no concerns. 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 Ja Guillory Code(s): Z98.890 - Other specified postprocedural states Category: Surgical Plan: Doing well Continue HEP and strengthening f/u as needed Coding Level of Care Code Est Pt Level 3 (90744) Diagnoses S/P arthroscopy of right shoulder Z98.890
[2024-04-15 10:43] VITALS: BMI 23.5
== END 2024-04-15 10:55 | disposition home or self-care (01) ==
PROVIDERS: PCP Internal Medicine; Visit Provider Orthopaedic Surgery
DX: Z47.89 Encounter for other orthopedic aftercare (principal); M25.311 Other instability, right shoulder
CPT/HCPCS: 99213

== ENCOUNTER → 2024-04-15 10:38 | Outpatient (BNVA) | payer OTHER, SELFPAY | PROVIDERS: PCP Internal Medicine; Visit Provider Orthopaedic Surgery | DX: M25.511 Pain in right shoulder (principal); Z47.89 Encounter for other orthopedic aftercare | CPT/HCPCS: 99212 ==

== ENCOUNTER 2024-07-14 13:04 | Outpatient (AMB) | payer OTHER, SELFPAY ==
--- NOTE | 2024-07-14 13:16 | A.OFFVIS_ITS ---
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 He is prescribed hydroxyzine 25 mg qhs and myrbetriq 25 mg q AM. He states that his bladder pain is 75% improved however the hydroxyzine causes him to be drowsy during the day. He still has daytime urgency, frequency every 45 min-an hour. Discussed alternative meds to include elmiron-discuss side effects of elmiron including elevation of LFT's which generally reverses upon discontinuing the elmiron, and retinal damage reported in snf use. The pt declines trial of elmiron. Discussed decrease hydroxyzine and increasing myrbetriq. Review of chart: 02/19/24-- Shivam is s/p cystoscopy hydrodistension, 01/27/24; bladder capacity post distension 625 mL, positive glomerulations, findings c/w interstitial cystitis. The patient states he still has bladder pressure and urgency. I discussed with the patient that Interstitial cystitis is a chronic condition in which the lining of the bladder is inflamed and symptoms may include bladder pressure, burning with urination, urgency or pelvic pain. The exact cause for IC is not known, but likely factors that contribute would be factors that affect the protective lining of the bladder allowing urine to irritate the bladder wall. Contributing factors may include Recurrent UTI's, autoimmune reaction, heredity or allergy. Treatment includes lifestyle changes including diet modification, anti-spasm and anti-histamine medications, elmiron, discussed SE to include elevation of liver function enzymes, retinal changes. Myrbetriq 25 mg daily, Hydroxyzine 25 mg qhs, IC diet discussed and pamphlet given discussed if symptoms persisit consider trial of Elmiron. Pt will call Nursed in one month to update on how his is doing on the meds. 01/12/24- Renal US- kidneys WNL. 12/08/23--Shivam is a 33year old male here for evaluation of urinary frequency, he was initially evaluated on 11/28/2022. Cystoscopy hydrodistention was discussed at that time that the patient states he had to cancel procedure but is now ready to proceed with further evaluation for his bladder symptoms. He states that while awake she has urgency and frequency about 20 times And is up 5-7 times when sleeping. He denies gross hematuria. If he can not get to the bathroom he feels pressure and pain in the bladder area. Prostate cancer family history both grandfathers maternal and paternal Denies problems with erections denies pain with ejaculation. Reviewed bladder ultrasound dated 09/25/2022, urine measured 159 mL postvoid residual 7.3 mL, prostate 10 mL I have discussed his general fluid intake; he does have about 16 oz of an energy drink but generally does not appear to be having excess fluid intake. He states that he has tried stopping caffeine intake but it has not made a difference in his urinary symptoms. Evaluation today: Urinalysis negative; Bladder scan PVR 0 mL. 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 Cognitive needs: No Hearing needs: No Vision needs: Yes Review of Systems Const All systems reviewed & are unremarkable except as noted in HPI and below Reports no additional complaints Eyes Reports no additional complaints ENT Reports no additional complaints Card Reports no additional complaints Resp Reports no additional complaints GI Reports no additional complaints Reports as per HPI Musc Reports no additional complaints Skin/Breast Reports system reviewed and no additional complaints, except as documented Neuro Reports no additional complaints Psych Reports no additional complaints Endo Reports no additional complaints Elver/Lymph Reports no additional complaints Aller/Immun Reports no additional complaints Results AMB Urinalysis, Automated UA Leukoctes 0 Tanika/uL Last Edit by ELEAZAR Sunshine on 07/14/24 13:39 UA Nitrite Negative Last Edit by Starla May [facility] on 07/14/24 13:39 UA Urobilinogen 0.2 mg/dL Last Edit by Starla May [facility] on 07/14/24 13:3 9 UA Protein 0 mg/dL Last Edit by Starla May [facility] on 07/14/24 13:39 UA pH 6.0 Last Edit by Starla May [facility] on 07/14/24 13:39 UA Blood 0 Jesse/uL Last Edit by Starla May [facility] on 07/14/24 13:39 UA Specific [place] 1.015 Last Edit by Starla May [facility] on 07/14/24 13: 39 UA Ketone Negative Last Edit by Staral May [facility] on 07/14/24 13:39 UA Bilirubin 0 mg/dL Last Edit by Starla May [facility] on 07/14/24 13:39 UA Glucose 0 mg/dL Last Edit by Starla May [facility] on 07/14/24 13:39 Results Reviewed Results Reviewed: Laboratory Last Values Urine pH (Auto) 6.0 07/14/24 13:38 Specific [place] (Auto) 1.015 07/14/24 13:38 Urine Protein (Auto) 0 mg/dL 07/14/24 13:38 Glucose (UA)(Auto) 0 mg/dL 07/14/24 13:38 Urine Ketones (Auto) Negative 07/14/24 13:38 Urine Blood (Auto) 0 Jesse/uL 07/14/24 13:38 Urine Nitrite (Auto) Negative 07/14/24 13:38 Urine Bilirubin (Auto) 0 mg/dL 07/14/24 13:38 Urine Urobilinogen (Auto) 0.2 mg/dL 07/14/24 13:38 Leukocyte Esterase (Auto) 0 Tanika/uL 07/14/24 13:38 Date of Service: 01/12/24 EXAMINATION: US RETROPERITONEAL LIMITED (RENAL ONLY) CLINICAL INFORMATION: Other symptoms and signs involving the genitourinary system. COMPARISON: Ultrasound pelvis limited (bladder) 09/25/2022. Ultrasound abdomen complete 10/07/2018. TECHNIQUE: Real-time imaging of the kidneys. FINDINGS: RIGHT KIDNEY: 9.7 x 4.4 x 4.0 cm (SAG x AP x TRV). The kidney is normal in size, contour, and echogenicity. Renal cortical thickness is normal. No calculi or focal parenchymal lesions. No hydronephrosis. LEFT KIDNEY: 10.1 x 5.0 x 5.0 cm (SAG x AP x TRV). The kidney is normal in size, contour, and echogenicity. Renal cortical thickness is normal. No calculi or focal parenchymal lesions. No hydronephrosis. IMPRESSION: Unremarkable examination. Assessment & Plan Assessment & Plan (1) Urinary frequency: Code(s): R35.0 - Frequency of micturition Category: Medical (2) Sensation of pressure in bladder area: Code(s): R39.89 - Other symptoms and signs involving the genitourinary system Category: Medical (3) Urinary urgency: Code(s): R39.15 - Urgency of urination Category: Medical (4) Interstitial cystitis (chronic) without hematuria: Code(s): N30.10 - Interstitial cystitis (chronic) without hematuria Category: Medical Plan Discussed decrease hydroxyzine and increasing myrbetriq. Orders: Orders AMB Urinalysis Automated Today Z13.9 - Encounter for screening, unspecified Medications: New mirabegron ER (Myrbetriq) 50 mg PO DAILY 90 tabs 3RF hydroxyzine HCl alternate with the vistaril 25 mg as directed by 10 mg PO BEDTIME 60 tabs 3RF Refilled hydroxyzine pamoate 25 mg PO BEDTIME 30 caps 7RF Discontinued mirabegron ER (Myrbetriq) Discontinued Reason: Doctor's Order 25 mg PO DAILY 30 tabs 1RF Patient Instructions: The patient had an opportunity to ask questions regarding treatment plan. The patient expressed understanding and agreement with the above treatment plan. The patient is aware they should contact our office by phone for worsening of their current condition or the appearance of new symptoms. Compliance is encouraged with any medications and followup testing that is ordered. It is a privilege to be allowed the opportunity to participate in the urologic care of your patient. If you have any questions or concerns regarding treatment for the above conditions please do not hesitate to contact me. The office telephone contact is [phone]. This note is constructed in part using voice recognition software. While every effort has been made to ensure accuracy hiv nurse errors may have been included. Yours sincerely, Yrn Driver MD Coding Level of Care Code Est Pt Level 4 (16509) Diagnoses Urinary frequency R35.0 Sensation of pressure in bladder area R39.89 Urinary urgency R39.15 Interstitial cystitis (chronic) without hematuria N30.10
== END 2024-07-14 14:09 | disposition home or self-care (01) ==
PROVIDERS: PCP Internal Medicine; Visit Provider Urology
DX: R35.0 Frequency of micturition (principal); R39.89 Other symptoms and signs involving the genitourinary system; R39.15 Urgency of urination; N30.10 Interstitial cystitis (chronic) without hematuria; Z13.9 Encounter for screening, unspecified
CPT/HCPCS: 99214

== ENCOUNTER → 2024-07-14 13:04 | Outpatient (BNVA) | payer OTHER, SELFPAY | PROVIDERS: PCP Internal Medicine; Visit Provider Urology | DX: R35.0 Frequency of micturition (principal); R39.15 Urgency of urination; R39.89 Other symptoms and signs involving the genitourinary system | CPT/HCPCS: 81003; 99212 ==